=== PATIENT | male | born 1975 | race Caucasian/White ===

== ENCOUNTER 2017-07-19 18:06 | Emergency (ER) | payer MEDICAID, OTHER ==
[~2017-07-19] VITALS: Ht 175.3 cm; Wt 85.0 kg
[~2017-07-19 18:06] MED LIST: DICY1TAB26 PO; DICY20TA10 PO; HYDR-3533 PO; KCL20 PO; LEVE500 PO; MAGN500T4 PO; NOVOLOGSS SQ; NOVONP2 SQ; PRIL20TA2 PO; RANI150T PO; SERO400T3 PO; SUCR1S PO; SUCR1TAB PO; TRAZ50TA78 PO; ZOFR4TAB3 SL
[2017-07-19 18:08] VITALS: BP 154/74; PULSE 84; RESP 15; TEMP 98.2; O2SAT 98
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
[2017-07-19] MEDS ORDERED: INSU100V2 SQ (19:17)
[2017-07-19] MEDS ORDERED: SERO50TA PO (19:17)
[2017-07-19] MEDS ORDERED: TRAZ50TA12 PO (19:17)
[2017-07-19] MEDS ORDERED: KEPP750T PO (19:17)
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
[2017-07-19 19:36] VITALS: BP 141/78
== END 2017-07-19 19:54 | disposition home or self-care (01) ==
LOC: NEPK 18:06
DX: S90.31XA Contusion of right foot, initial encounter (principal); J45.909 Unspecified asthma, uncomplicated; F31.9 Bipolar disorder, unspecified; F41.9 Anxiety disorder, unspecified; E11.9 Type 2 diabetes mellitus without complications; K85.90 Acute pancreatitis without necrosis or infection, unspecified; K21.9 Gastro-esophageal reflux disease without esophagitis; R48.0 Dyslexia and alexia; W22.8XXA Striking against or struck by other objects, initial encounter
CPT/HCPCS: 73630; 99283

== ENCOUNTER 2017-11-11 19:46 | Inpatient (IN) | payer MEDICAID ==
[~2017-11-11] VITALS: Ht 175.3 cm; Wt 85.0 kg
[~2017-11-11 19:46] MED LIST changes: -DICY1TAB26 PO; -DICY20TA10 PO; -HYDR-3533 PO; +INSU100V2 SQ; -KCL20 PO; +KEPP750T PO; -LEVE500 PO; -MAGN500T4 PO; -NOVOLOGSS SQ; -NOVONP2 SQ; -PRIL20TA2 PO; -RANI150T PO; -SERO400T3 PO; +SERO50TA PO; -SUCR1S PO; -SUCR1TAB PO; +TRAZ50TA12 PO; -TRAZ50TA78 PO; -ZOFR4TAB3 SL
[2017-11-11 19:48] VITALS: BP 114/88; PULSE 139; RESP 20; TEMP 98; O2SAT 98
[2017-11-11] MEDS ORDERED: ALUMINUM/MAGNESIUM/SIMETH 30 ML CUP PO ONE (20:45)
[2017-11-11] MEDS ORDERED: SODIUM CHLORIDE 0.9% FLUSH 10 ML FLUSH IV FLUSH PRN ×2 (20:45→23:15)
[2017-11-11] MEDS ORDERED: LIDOCAINE VISCOUS 2% SOLN 15 ML UDC PO ONE (20:45)
[2017-11-11] MEDS ORDERED: PANTOPRAZOLE SODIUM 40 MG VIAL IVP ONE (20:45)
[2017-11-11] MEDS ORDERED: ONDANSETRON HCL 4 MG/2 ML VIAL IVP ONE (20:45)
--- NOTE | 2017-11-11 20:46 | PD ---
HPI Chief Complaint: Abdominal Pain Time Seen by Provider: 20:42 Travel History International Travel<30 days: No Contact w/Intl Traveler<30days: No Traveled to known affect area: No History of Present Illness HPI 41-year-old insulin-dependent diabetic presents emergency Department with 4-5 day history of nausea and vomiting with reports of hematemesis and abdominal pain. Patient has history of pancreatitis in the past. Patient is unsure was placed sugars have been. He is very dry states he does not refer the last time he urinated. He complains of dry mouth. He denies fever or chills. He states no diarrhea. Patient has multiple allergies please see list. Vital signs show the patient to be tachycardic. Bedside blood sugar is 529. PFSH Past Medical History Hx Anticoagulant Therapy: No Arthritis: No Asthma: Yes (COMES AND GOES) Autoimmune Disease: No Bipolar Disorder: Yes Anxiety: Yes Depression: Yes Heart Rhythm Problems: No Cancer: No Cardiovascular Problems: No High Cholesterol: No Chemotherapy: No Chest Pain: No Congestive Heart Failure: No COPD: No Cerebrovascular Accident: No Diabetes: Yes Patient Takes Glucophage: No Diminished Hearing: No Endocrine: Yes (pancreatitis) Gastrointestinal Disorders: Yes (HX OF ULCERS) GERD: Yes Genitourinary: No Hiatal Hernia: No Immune Disorder: No Implanted Vascular Access Dvce: No Kidney Stones: No Musculoskeletal: No Neurologic: Yes Psychiatric: Yes (dyslexia) Reproductive: No Respiratory: No Migraines: No Pancreatitis: Yes Radiation Therapy: No Renal Failure: No Seizures: Yes Sickle Cell Disease: No Sleep Apnea: No Ulcer: Yes Past Surgical History Abdominal Surgery: No AICD: No Arteriovenous Shunt: No Cardiac Surgery: No Ear Surgery: No Endocrine Surgery: No Eye Surgery: No Genitourinary Surgery: No Gynecologic Surgery: No Hysterectomy: No Insulin Pump: No Joint Replacement: No Pacemaker: No Thoracic Surgery: No Social History Alcohol Use: No (RARE) Tobacco Use: No Substance Use: Yes (WEED ONCE IN A WHILE ) Allergies-Medications (Allergen,Severity, Reaction): Coded Allergies: Pork/Porcine Containing Products (Verified Allergy, Severe, ALLERGIC TO PORK INSULIN ONLY, 11/11/17) insulin aspart (Verified Allergy, Severe, ITCHING, RASH TO PORK INSULIN ONLY, 11/11/17) insulin aspart protamine human (Verified Allergy, Severe, ITCHING, RASH TO PORK INSULIN ONLY, 11/11/17) insulin detemir (Verified Allergy, Severe, ITCHING, RASH TO PORK INSULIN ONLY, 11/11/17) insulin glargine (Verified Allergy, Severe, ITCHING, RASH TO PORK INSULIN ONLY, 11/11/17) insulin isophane (NPH) (Verified Allergy, Severe, ITCHING, RASH TO PORK INSULIN ONLY, 11/11/17) insulin lispro (Verified Allergy, Severe, ITCHING, RASH TO PORK INSULIN ONLY, 11/11/17) insulin regular (Verified Allergy, Severe, ITCHING, RASH TO PORK INSULIN ONLY, 11/11/17) penicillin G (Verified Allergy, Severe, HIVES, 11/11/17) Reported Meds & Prescriptions Reported Meds & Active Scripts Active Reported Humulin R Inj (Insulin Human Regular) 1,000 Unit/10 Ml Vial 2-12 Units SQ ACHS Max dose at bedtime:( )units; sugars < 70 (0)units; sugars 150-199, (2)units; sugars 200-249,(4)units; sugars 250-299, (7)units; sugars 300-349,(10)units; sugars more than 349,(12)units. Trazodone (Trazodone HCl) 50 Mg Tab 50 Mg PO HS Seroquel (Quetiapine Fumarate) 50 Mg Tab 50 Mg PO HS Keppra (Levetiracetam) 750 Mg Tab 750 Mg PO DAILY Review of Systems ROS Limitations: Poor Historian, Other: (obtunded.) Except as stated in HPI: all other systems reviewed are Neg General / Constitutional: No: Fever, Chills Eyes: No: Visual changes HENT: Positive: Lightheadedness, No: Headaches, Vertigo, Sore Throat, Rhinitis , Rhinorrhea, Congestion, Nosebleed, Neck Stiffness, Neck Pain, Gingival Bleeding, Dental Difficulties, Ear Discharge, Earache Cardiovascular: Positive: Dyspnea on exertion, No: Chest Pain or Discomfort, Diaphoresis Respiratory: No: Shortness of Breath Gastrointestinal: Positive: Nausea, Vomiting, Abdominal Pain, No: Diarrhea Genitourinary: Positive: Decreased Urinary Output, No: Dysuria Musculoskeletal: No: Pain Skin: No Rash Neurologic: No: Weakness Psychiatric: No: Depression Endocrine: No: Polydipsia Hematologic/Lymphatic: No: Easy Bruising Physical Exam Narrative GENERAL: Patient is answering questions but is somewhat obtunded, and weak. SKIN: Warm and dry. Decreased pallor. Decreased turgor with tenting. HEAD: Atraumatic. Normocephalic. EYES: Pupils equal and round. No scleral icterus. No injection or drainage. ENT: No nasal bleeding or discharge. Mucous membranes pink and moist. NECK: Trachea midline. No JVD. CARDIOVASCULAR: Regular rate and rhythm. RESPIRATORY: No accessory muscle use. Clear to auscultation. Breath sounds equal bilaterally. GASTROINTESTINAL: Abdomen soft, non-tender, nondistended. Hepatic and splenic margins not palpable. MUSCULOSKELETAL: Extremities without clubbing, cyanosis, or edema. No obvious deformities. NEUROLOGICAL: Awake and alert. No obvious cranial nerve deficits. Motor grossly within normal limits. Five out of 5 muscle strength in the arms and legs. Normal speech. PSYCHIATRIC: Appropriate mood and affect; insight and judgment normal. Data Data Last Documented VS Vital Signs Date Time Temp Pulse Resp B/P (MAP) Pulse Ox O2 Delivery O2 Flow Rate FiO2 11/11/17 23:02 123 20 143/92 (109) 99 Room Air 11/11/17 19:48 98.0 Orders Orders Complete Blood Count With Diff (11/11/17 20:42) Comprehensive Metabolic Panel (11/11/17 20:42) Lipase (11/11/17 20:42) Lactic Acid (11/11/17 20:42) Prothrombin Time / Inr (Pt) (11/11/17 20:42) Act Partial Throm Time (Ptt) (11/11/17 20:42) Urinalysis - C+S If Indicated (11/11/17 20:42) Iv Access Insert/Monitor (11/11/17 20:42) Ecg Monitoring (11/11/17 20:42) Oximetry (11/11/17 20:42) NPO (11/11/17 20:42) Ondansetron Inj (Zofran Inj) (11/11/17 20:45) Pantoprazole Inj (Protonix Inj) (11/11/17 20:45) Sodium Chlor 0.9% 1000 Ml Inj (Ns 1000 M (11/11/17 20:42) Sodium Chloride 0.9% Flush (Ns Flush) (11/11/17 20:45) Electrocardiogram (11/11/17 20:42) Al-Mag Hy-Si 40-40-4 Mg/Ml Liq (Mag-Al P (11/11/17 20:45) Lidocaine 2% Viscous (Xylocaine 2% Visco (11/11/17 20:45) Osmolality,Serum (11/11/17 20:52) Blood Gas Venous (Vbg) (11/11/17 20:52) Sodium Chloride 0.9% Flush (Ns Flush) (11/11/17 21:00) Insulin Human Regular Inj (Novolin R Inj (11/11/17 21:00) Blood Glucose (11/11/17 20:52) Blood Glucose (11/11/17 21:52) Beta Hydroxybutyrate (Acetone) (11/11/17 20:42) Magnesium (Mg) (11/11/17 20:42) Phosphorus (Po4) (11/11/17 20:42) Animal Caretaker Supervisor / Telemetry [email or web address] (11/11/17 21:54) ^ Insert Iv (11/11/17 21:54) Diet Npo (11/12/17 Breakfast) Sodium Chlor 0.9% 1000 Ml Inj (Ns 1000 M (11/11/17 21:54) Dext 5%-Nacl 0.9% 1000 Ml Inj (D5w-Ns 10 (11/11/17 21:54) Insulin Regular (Iv Infusion) (Novolin R (11/11/17 22:00) Potassium Chlor 40 Meq Premix (Kcl 40 Me (11/11/17 22:00) Potassium Chlor 40 Meq Premix (Kcl 40 Me (11/11/17 22:00) Potassium Chlor 20 Meq Premix (Kcl 20 Me (11/11/17 22:00) Potassium Chlor 20 Meq Premix (Kcl 20 Me (11/11/17 22:00) Potassium Chlor 20 Meq Premix (Kcl 20 Me (11/11/17 22:00) Potassium Chlor 20 Meq Premix (Kcl 20 Me (11/11/17 22:00) Potassium Chlor 20 Meq Premix (Kcl 20 Me (11/11/17 22:00) Potassium Chlor 20 Meq Premix (Kcl 20 Me (11/11/17 22:00) Sodium Bicarbonate 8.4% Inj (Sodium Bica (11/11/17 22:00) Sodium Bicarbonate 8.4% Inj (Sodium Bica (11/11/17 22:00) Sodium Phosphate Inj (Sodium Phosphate I (11/11/17 22:00) Hemoglobin (Hgb) A1c (11/11/17 21:54) Basic Metabolic Panel (Bmp) (11/12/17 02:54) Basic Metabolic Panel (Bmp) (11/12/17 08:54) Basic Metabolic Panel (Bmp) (11/12/17 14:54) Basic Metabolic Panel (Bmp) (11/12/17 20:54) Magnesium (Mg) (11/12/17 02:54) Magnesium (Mg) (11/12/17 08:54) Magnesium (Mg) (11/12/17 14:54) Magnesium (Mg) (11/12/17 20:54) Phosphorus (Po4) (11/12/17 02:54) Phosphorus (Po4) (11/12/17 08:54) Phosphorus (Po4) (11/12/17 14:54) Phosphorus (Po4) (11/12/17 20:54) Beta Hydroxybutyrate (Acetone) (11/12/17 08:54) Beta Hydroxybutyrate (Acetone) (11/12/17 20:54) Ct Abd/Pel W/O Iv Contrast (11/11/17 22:36) Admit Order (Ed Use Only) (11/11/17 23:07) Labs Laboratory Tests Test 11/11/17 20:59 11/11/17 21:02 11/11/17 21:04 11/11/17 21:41 Blood Urea Nitrogen 32 MG/DL Creatinine 2.43 MG/DL Random Glucose 562 MG/DL Total Protein 9.0 GM/DL Albumin 4.7 GM/DL Calcium Level 10.0 MG/DL Phosphorus Level 8.9 MG/DL Magnesium Level 2.5 MG/DL Alkaline Phosphatase 138 U/L Aspartate Amino Transf (AST/SGOT) 10 U/L Alanine Aminotransferase (ALT/SGPT) 20 U/L Total Bilirubin 0.7 MG/DL Sodium Level 128 MEQ/L Potassium Level 4.2 MEQ/L Chloride Level 86 MEQ/L Carbon Dioxide Level 10.8 MEQ/L Anion Gap 31 MEQ/L Estimat Glomerular Filtration Rate 30 ML/MIN Lipase 115 U/L B-Hydroxybutyrate 9.37 MMOL/L Lactic Acid Level 8.8 mmol/L White Blood Count 21.9 TH/MM3 Red Blood Count 6.11 MIL/MM3 Hemoglobin 18.1 GM/DL Hematocrit 56.4 % Mean Corpuscular Volume 92.4 FL Mean Corpuscular Hemoglobin 29.6 PG Mean Corpuscular Hemoglobin Concent 32.0 % Red Cell Distribution Width 14.2 % Platelet Count 366 TH/MM3 Mean Platelet Volume 8.4 FL Neutrophils (%) (Auto) 90.4 % Lymphocytes (%) (Auto) 5.4 % Monocytes (%) (Auto) 3.7 % Eosinophils (%) (Auto) 0.0 % Basophils (%) (Auto) 0.5 % Neutrophils # (Auto) 19.8 TH/MM3 Lymphocytes # (Auto) 1.2 TH/MM3 Monocytes # (Auto) 0.8 TH/MM3 Eosinophils # (Auto) 0.0 TH/MM3 Basophils # (Auto) 0.1 TH/MM3 CBC Comment DIFF FINAL Differential Comment Prothrombin Time 10.3 SEC Prothromb Time International Ratio 1.0 RATIO Activated Partial Thromboplast Time LESS THAN 19.0 SEC Serum Osmolality 352 MOSM/KG Blood Gas Puncture Site IV Blood Gas Patient Temperature 98.6 Venous Blood pH 7.14 Venous Blood Partial Pressure CO2 33 mmHg Venous Blood Partial Pressure O2 36 mmHg Venous Blood HCO3 11 mmol/L Venous Blood Oxygen Saturation 57 % Venous Blood Oxygen Content 13.1 Vol % Venous Blood Base Excess -16.5 mmol/L Oxygen Delivery Device ROOM AIR Blood Gas Inspired Oxygen 21 % [facility] Medical Decision Making Medical Screen Exam Complete: Yes Emergency Medical Condition: Yes Medical Record Reviewed: Yes Differential Diagnosis Hyperglycemia. DKA. Pancreatitis. Nausea vomiting. Hematemesis. Dehydration. Electrolyte imbalance. Narrative Course Patient appears moderately distressed with possible DKA. IV access is obtained. Labs ordered including CBC, CMP, lactic acid, lipase, coagulation studies, urinalysis, venous blood gas, phosphorus, magnesium, beta hydroxybutyrate. Type and screen is ordered as well. Patient is given 10 units insulin IV. 2000 mL normal saline bolus is ordered. Patient is a blood sugar checks every hour 2. CT of the abdomen with IV contrast is ordered pending creatinine. CBC is remarkable for leukocytosis of 21.9. Hemoglobin is 18.1. Hematocrit is 56.4. Venous blood gas shows DVT pH of 7.14, TBG HC03 is 11, and the GB base excess is -16.5 L. Patient is in DKA. Those results were discussed with Dr. Adkins who recommended starting the patient was DKA insulin drip with protocols. Serum osmolality is 352. Lactic acid is 8.8. CMP significant sodium of 128, chloride 86, carbon dioxide is 10.8, anion gap was 31. BUN is 32, creatinine is 2.43, is estimated at 30. Glucose from the lab is 562. Phosphorus 8.9. Calcium is 10. Alkaline phosphatase is 138, total protein is 9.0, lipase is 1:15. Patient will be admitted to the ICU. Call placed to the hospitalist. Diagnosis Primary Impression: DKA (diabetic ketoacidoses) Qualified Codes: E10.10 - Type 1 diabetes mellitus with ketoacidosis without coma Additional Impression: Hematemesis Qualified Codes: K92.0 - Hematemesis Admitting Information Admitting Physician Requests: Admit Condition: Stable Jonah Turner Nov 11, 2017 20:46
--- NOTE | 2017-11-11 20:53 | PD ---
Data Data Last Documented VS Vital Signs Date Time Temp Pulse Resp B/P (MAP) Pulse Ox O2 Delivery O2 Flow Rate FiO2 11/11/17 23:02 123 20 143/92 (109) 99 Room Air 11/11/17 19:48 98.0 Orders Orders Complete Blood Count With Diff (11/11/17 20:42) Comprehensive Metabolic Panel (11/11/17 20:42) Lipase (11/11/17 20:42) Lactic Acid (11/11/17 20:42) Prothrombin Time / Inr (Pt) (11/11/17 20:42) Act Partial Throm Time (Ptt) (11/11/17 20:42) Urinalysis - C+S If Indicated (11/11/17 20:42) Iv Access Insert/Monitor (11/11/17 20:42) Ecg Monitoring (11/11/17 20:42) Oximetry (11/11/17 20:42) NPO (11/11/17 20:42) Ondansetron Inj (Zofran Inj) (11/11/17 20:45) Pantoprazole Inj (Protonix Inj) (11/11/17 20:45) Sodium Chlor 0.9% 1000 Ml Inj (Ns 1000 M (11/11/17 20:42) Sodium Chloride 0.9% Flush (Ns Flush) (11/11/17 20:45) Al-Mag Hy-Si 40-40-4 Mg/Ml Liq (Mag-Al P (11/11/17 20:45) Lidocaine 2% Viscous (Xylocaine 2% Visco (11/11/17 20:45) Osmolality,Serum (11/11/17 20:52) Blood Gas Venous (Vbg) (11/11/17 20:52) Sodium Chloride 0.9% Flush (Ns Flush) (11/11/17 21:00) Insulin Human Regular Inj (Novolin R Inj (11/11/17 21:00) Blood Glucose (11/11/17 20:52) Blood Glucose (11/11/17 21:52) Beta Hydroxybutyrate (Acetone) (11/11/17 20:42) Magnesium (Mg) (11/11/17 20:42) Phosphorus (Po4) (11/11/17 20:42) Rack Washer / Telemetry JOHN.Q8H (11/11/17 21:54) ^ Insert Iv (11/11/17 21:54) Diet Npo (11/12/17 Breakfast) Sodium Chlor 0.9% 1000 Ml Inj (Ns 1000 M (11/11/17 21:54) Dext 5%-Nacl 0.9% 1000 Ml Inj (D5w-Ns 10 (11/11/17 21:54) Insulin Regular (Iv Infusion) (Novolin R (11/11/17 22:00) Potassium Chlor 40 Meq Premix (Kcl 40 Me (11/11/17 22:00) Potassium Chlor 40 Meq Premix (Kcl 40 Me (11/11/17 22:00) Potassium Chlor 20 Meq Premix (Kcl 20 Me (11/11/17 22:00) Potassium Chlor 20 Meq Premix (Kcl 20 Me (11/11/17 22:00) Potassium Chlor 20 Meq Premix (Kcl 20 Me (11/11/17 22:00) Potassium Chlor 20 Meq Premix (Kcl 20 Me (11/11/17 22:00) Potassium Chlor 20 Meq Premix (Kcl 20 Me (11/11/17 22:00) Potassium Chlor 20 Meq Premix (Kcl 20 Me (11/11/17 22:00) Sodium Bicarbonate 8.4% Inj (Sodium Bica (11/11/17 22:00) Sodium Bicarbonate 8.4% Inj (Sodium Bica (11/11/17 22:00) Sodium Phosphate Inj (Sodium Phosphate I (11/11/17 22:00) Hemoglobin (Hgb) A1c (11/11/17 21:54) Basic Metabolic Panel (Bmp) (11/12/17 02:54) Basic Metabolic Panel (Bmp) (11/12/17 08:54) Magnesium (Mg) (11/12/17 02:54) Magnesium (Mg) (11/12/17 08:54) Phosphorus (Po4) (11/12/17 02:54) Phosphorus (Po4) (11/12/17 08:54) Beta Hydroxybutyrate (Acetone) (11/12/17 08:54) Ct Abd/Pel W/O Iv Contrast (11/11/17 22:36) Admit Order (Ed Use Only) (11/11/17 23:07) Random Vancomycin (11/12/17 02:54) Labs Laboratory Tests Test 11/11/17 20:59 11/11/17 21:02 11/11/17 21:04 11/11/17 21:41 Blood Urea Nitrogen 32 MG/DL Creatinine 2.43 MG/DL Random Glucose 562 MG/DL Total Protein 9.0 GM/DL Albumin 4.7 GM/DL Calcium Level 10.0 MG/DL Phosphorus Level 8.9 MG/DL Magnesium Level 2.5 MG/DL Alkaline Phosphatase 138 U/L Aspartate Amino Transf (AST/SGOT) 10 U/L Alanine Aminotransferase (ALT/SGPT) 20 U/L Total Bilirubin 0.7 MG/DL Sodium Level 128 MEQ/L Potassium Level 4.2 MEQ/L Chloride Level 86 MEQ/L Carbon Dioxide Level 10.8 MEQ/L Anion Gap 31 MEQ/L Estimat Glomerular Filtration Rate 30 ML/MIN Lipase 115 U/L B-Hydroxybutyrate 9.37 MMOL/L Lactic Acid Level 8.8 mmol/L White Blood Count 21.9 TH/MM3 Red Blood Count 6.11 MIL/MM3 Hemoglobin 18.1 GM/DL Hematocrit 56.4 % Mean Corpuscular Volume 92.4 FL Mean Corpuscular Hemoglobin 29.6 PG Mean Corpuscular Hemoglobin Concent 32.0 % Red Cell Distribution Width 14.2 % Platelet Count 366 TH/MM3 Mean Platelet Volume 8.4 FL Neutrophils (%) (Auto) 90.4 % Lymphocytes (%) (Auto) 5.4 % Monocytes (%) (Auto) 3.7 % Eosinophils (%) (Auto) 0.0 % Basophils (%) (Auto) 0.5 % Neutrophils # (Auto) 19.8 TH/MM3 Lymphocytes # (Auto) 1.2 TH/MM3 Monocytes # (Auto) 0.8 TH/MM3 Eosinophils # (Auto) 0.0 TH/MM3 Basophils # (Auto) 0.1 TH/MM3 CBC Comment DIFF FINAL Differential Comment Prothrombin Time 10.3 SEC Prothromb Time International Ratio 1.0 RATIO Activated Partial Thromboplast Time LESS THAN 19.0 SEC Serum Osmolality 352 MOSM/KG Blood Gas Puncture Site IV Blood Gas Patient Temperature 98.6 Venous Blood pH 7.14 Venous Blood Partial Pressure CO2 33 mmHg Venous Blood Partial Pressure O2 36 mmHg Venous Blood HCO3 11 mmol/L Venous Blood Oxygen Saturation 57 % Venous Blood Oxygen Content 13.1 Vol % Venous Blood Base Excess -16.5 mmol/L Oxygen Delivery Device ROOM AIR Blood Gas Inspired Oxygen 21 % [facility] Medical Record Reviewed: Yes Supervised Visit with RAMILA: Yes Interpretation(s) Last Impressions Abdomen/Pelvis CT 11/11/17 2236 Signed Impressions: Service Date/Time: Saturday, November 11, 2017 22:31 - CONCLUSION: 1. No acute abnormality seen. 2. Minimal hepatic steatosis. Son Malave MD Chest X-Ray 11/11/17 0000 Signed Impressions: Service Date/Time: Saturday, November 11, 2017 23:32 - CONCLUSION: No acute disease. Son Malave MD Narrative Course I, Dr. Adkins, have reviewed the advance practice practitioner's documentation and am in agreement, met with the patient face to face, made the diagnosis, and the medical decision making was done by me. The patient was initially evaluated by Jonah, the physician assistance. Please see their complete history and physical. *My assessment and Findings: The patient presents with a history of abdominal pain with nausea vomiting and coffee-ground emesis that he reports began 4-5 days ago. The patient has a history of diabetes. The patient has a history of pancreatitis. The patient is unsure what his recent blood sugar has been. He reports having a dry mouth with urinary frequency and polydipsia. During the course of the patients emergency department visit, the patients history, examination, and differential diagnosis were reviewed with the patient. The patient was placed on a cardiac technologist with oximetry and frequent blood pressure monitoring. The patient had IV access obtained and blood work sent for analysis. The patient was initially provided 2 L of normal saline IV fluids as the patient appeared to be clinically dehydrated. The patient also appeared to be tachypneic consistent with DKA with an elevated blood sugar. A VBG was ordered which confirmed acidosis. The patient was given an insulin bolus and started on an insulin drip. The patients laboratory studies were reviewed and remarkable for white count of 21.9, hemoglobin 18.1, platelets 366 with neutrophils 90.4, CMP is remarkable for a sodium of 128, CO2 10.8, BUN 32, creatinine 2.43, anion gap 32, glucose 562, lactic acid 8.8, lipase 115. PT 10.3, PTT less than 19, beta hydroxybutyrate is 9.37, urinalysis shows 1000 glucose 150 ketones Radiology studies were reviewed and remarkable for chest x-ray that shows no acute cardiopulmonary disease, CT scan of the abdomen and pelvis shows no acute abnormality, minimal hepatic steatosis. The patients results were discussed with the patient, including the plan of care. I explained that further testing and/ or monitoring is indicated based on the patients history, examination, and/ or laboratory findings. Therefore, I recommended admission for additional evaluation. The patient expressed understanding and was agreeable with this plan. The patient was admitted to the hospital in guarded condition and [facility]. Diagnosis Primary Impression: DKA (diabetic ketoacidoses) Qualified Codes: E10.10 - Type 1 diabetes mellitus with ketoacidosis without coma Additional Impression: Dehydration Admitting Information Admitting Physician Requests: Admit Linda Adkins MD Nov 11, 2017 20:53
[2017-11-11] MEDS ORDERED: INSULIN HUMAN REGULAR 1,000 UNITS/10 ML VIAL IV PUSH ONE (21:00)
[2017-11-11] MEDS ORDERED: SODIUM CHLORIDE 0.9% FLUSH 10 ML FLUSH IVF PRN (21:00)
[2017-11-11 21:35] LABS: AUTOMATED NEUTROPHIL # 19.8 TH/MM3 (1.8-7.7); BASOPHIL # 0.1 TH/MM3 (0-0.2); BASOPHIL % 0.5 % (0.0-2.0); HEMATOCRIT 56.4 % (39.0-51.0); HEMOGLOBIN 18.1 GM/DL (13.0-17.0); LYMPH % 5.4 % (9.0-44.0); LYMPHOCYTE # 1.2 TH/MM3 (1.0-4.8); MEAN CELL VOLUME 92.4 FL (80.0-100.0); MEAN CORPUSCULAR HEMOGLOBIN 29.6 PG (27.0-34.0); MEAN PLATELET VOLUME 8.4 FL (7.0-11.0); MONO % 3.7 % (0.0-8.0); MONOCYTE # 0.8 TH/MM3 (0-0.9); NEUT % 90.4 % (16.0-70.0); PLATELET COUNT 366 TH/MM3 (150-450); RED BLOOD COUNT 6.11 MIL/MM3 (4.50-5.90); RED CELL DISTRIBUTION WIDTH 14.2 % (11.6-17.2); WHITE BLOOD COUNT 21.9 TH/MM3 (4.0-11.0)
[2017-11-11] MEDS: SODIUM CHLOR 0.9% 1000 ML INJ 1,000 ML IV SCH (21:36)
[2017-11-11 21:42] VITALS: O2SAT 96
[2017-11-11] MEDS: DEXT 5%-NACL 0.9% 1000 ML INJ 1,000 ML IV SCH (21:54)
[2017-11-11] MEDS ORDERED: INSULIN REGULAR (IV INFUSION) 100 UNITS in SODIUM CHLORIDE 0.9% INJ 99 ML IV PRN (22:00)
[2017-11-11] MEDS ORDERED: POTASSIUM CHLOR 20 MEQ PREMIX 100 ML IV PRN ×5 (22:00)
[2017-11-11] MEDS ORDERED: SODIUM BICARBONATE 8.4% SOLN 50 MEQ/50 ML VIAL IV PUSH PRN ×2 (22:00)
[2017-11-11] MEDS ORDERED: SODIUM PHOSPHATE INJ 15 MMOL in SODIUM CHLORIDE 0.9% INJ 100 ML IV PRN (22:00)
[2017-11-11] MEDS ORDERED: POTASSIUM CHLOR 40 MEQ PREMIX 100 ML IV PRN ×2 (22:00)
[2017-11-11 22:12] LABS: PROTHROMBIN TIME - PATIENT 10.3 SEC (9.8-11.6)
[2017-11-11 22:18] LABS: ALBUMIN 4.7 GM/DL (3.4-5.0); ALKALINE PHOSPHATASE 138 U/L (45-117); ALT (GPT) 20 U/L (12-78); AST (GOT) 10 U/L (15-37); BICARBONATE 10.8 MEQ/L (21.0-32.0); BLOOD UREA NITROGEN 32 MG/DL (7-18); CHLORIDE 86 MEQ/L (98-107); CREATININE 2.43 MG/DL (0.60-1.30); GLOMERULAR FILTRATION RATE 30 ML/MIN (>89); LIPASE 115 U/L (73-393); MAGNESIUM 2.5 MG/DL (1.5-2.5); PHOSPHORUS 8.9 MG/DL (2.5-4.9); SODIUM (NA) 128 MEQ/L (136-145); TOTAL BILIRUBIN ADULT 0.7 MG/DL (0.2-1.0)
[2017-11-11 22:20] LABS: GLUCOSE,RANDOM 562 MG/DL (74-106)
[2017-11-11 23:02] VITALS: BP 143/92; PULSE 123; RESP 20; O2SAT 99
--- NOTE | 2017-11-11 23:11 | HHI.HP ---
[facility] Quang Crain D.O. Admission Diagnosis DKA/Hematemesis/Dehydration Diagnoses: (1) DKA (diabetic ketoacidoses) Diagnosis: Principal (2) Lactic acidosis Diagnosis: Principal (3) Leukocytosis Diagnosis: Principal (4) Hematemesis Diagnosis: Principal Travel History International Travel<30 Days: No Contact w/Intl Traveler <30 Da: No Traveled to Known Affected Are: No History of Present Illness This is a 41-year-old male with a PMH of DM, Anxiety, Depression, Bipolar Disorder, Seizure Disorder, Non-Compliance, h/o Pancreatitis and GERD who presented to the ER w/ complaints of abdominal pain, nausea/vomiting and hematemesis x4-5 days. Reports generalized abdominal pain, intermittent, cramping, severe 8/10, non-radiating, associated w/ nausea/vomiting. Today, noted episode of bloody emesis. Denies fever, chills, diarrhea or sick contacts. Does not check BS regularly, non-compliant w/ medications. On arrival, BP 114/88, HR 139, O2 sat 98% on RA, Afebrile. WBC 21.9. Creatinine 2.43, previously 0.91 on 09/03/15. CO2 10.8. BS 562, Lactic Acid 8.8. B- hydroxy 9.37. ABG w/ pH 7.14. Started on DKA Protocol. CT Abd/Pelvis w/ no acute findings. Review of Systems Except as stated in HPI: all other systems reviewed are Neg ROS: 14 point review of systems otherwise negative. Past Family Social History Past Medical History PMH: DM, Anxiety, Depression, Bipolar Disorder, Seizure Disorder, Non- Compliance, h/o Pancreatitis and GERD Past Surgical History PAST SURGICAL HISTORY: None Allergies: Coded Allergies: Pork/Porcine Containing Products (Verified Allergy, Severe, ALLERGIC TO PORK INSULIN ONLY, 11/11/17) insulin aspart (Verified Allergy, Severe, ITCHING, RASH TO PORK INSULIN ONLY, 11/11/17) insulin aspart protamine human (Verified Allergy, Severe, ITCHING, RASH TO PORK INSULIN ONLY, 11/11/17) insulin detemir (Verified Allergy, Severe, ITCHING, RASH TO PORK INSULIN ONLY, 11/11/17) insulin glargine (Verified Allergy, Severe, ITCHING, RASH TO PORK INSULIN ONLY, 11/11/17) insulin isophane (NPH) (Verified Allergy, Severe, ITCHING, RASH TO PORK INSULIN ONLY, 11/11/17) insulin lispro (Verified Allergy, Severe, ITCHING, RASH TO PORK INSULIN ONLY, 11/11/17) insulin regular (Verified Allergy, Severe, ITCHING, RASH TO PORK INSULIN ONLY, 11/11/17) penicillin G (Verified Allergy, Severe, HIVES, 11/11/17) Family History PAST FAMILY HISTORY: Reviewed, positive for DM. Social History PAST SOCIAL HISTORY: Occasional alcohol. History of tobacco. Positive for Marijuana. Physical Exam Vital Signs Vital Signs Date Time Temp Pulse Resp B/P (MAP) Pulse Ox O2 Delivery O2 Flow Rate FiO2 11/11/17 23:02 123 20 143/92 (109) 99 Room Air 11/11/17 21:42 96 Room Air 11/11/17 19:48 98.0 139 20 114/88 (97) 98 Room Air Physical Exam PE: GENERAL: Middle-aged male in no acute distress, mildly lethargic, appears weak. HEENT: PERRLA, EOMI. No scleral icterus or conjunctival pallor. No lid lag or facial droop. CARDIOVASCULAR: Regular rate and rhythm. No obvious murmurs to auscultation. No chest tenderness to palpation. RESPIRATORY: No obvious rhonchi or wheezing. Clear to auscultation. Breath sounds equal bilaterally. GASTROINTESTINAL: Abdomen soft, non-tender, nondistended. BS normal. MUSCULOSKELETAL: Extremities without clubbing, cyanosis, or edema. No obvious deformities. NEUROLOGICAL: Awake, alert and oriented x4. No focal neurologic deficits. Moving both upper and lower extremities spontaneously. Laboratory Laboratory Tests Test 11/11/17 20:59 11/11/17 21:02 11/11/17 21:04 11/11/17 21:41 Blood Urea Nitrogen 32 Creatinine 2.43 Random Glucose 562 Total Protein 9.0 Albumin 4.7 Calcium Level 10.0 Phosphorus Level 8.9 Magnesium Level 2.5 Alkaline Phosphatase 138 Aspartate Amino Transf (AST/SGOT) 10 Alanine Aminotransferase (ALT/SGPT) 20 Total Bilirubin 0.7 Sodium Level 128 Potassium Level 4.2 Chloride Level 86 Carbon Dioxide Level 10.8 Anion Gap 31 Estimat Glomerular Filtration Rate 30 Lipase 115 B-Hydroxybutyrate 9.37 Lactic Acid Level 8.8 White Blood Count 21.9 Red Blood Count 6.11 Hemoglobin 18.1 Hematocrit 56.4 Mean Corpuscular Volume 92.4 Mean Corpuscular Hemoglobin 29.6 Mean Corpuscular Hemoglobin Concent 32.0 Red Cell Distribution Width 14.2 Platelet Count 366 Mean Platelet Volume 8.4 Neutrophils (%) (Auto) 90.4 Lymphocytes (%) (Auto) 5.4 Monocytes (%) (Auto) 3.7 Eosinophils (%) (Auto) 0.0 Basophils (%) (Auto) 0.5 Neutrophils # (Auto) 19.8 Lymphocytes # (Auto) 1.2 Monocytes # (Auto) 0.8 Eosinophils # (Auto) 0.0 Basophils # (Auto) 0.1 CBC Comment DIFF FINAL Differential Comment Prothrombin Time 10.3 Prothromb Time International Ratio 1.0 Activated Partial Thromboplast Time LESS THAN 19.0 Serum Osmolality 352 Blood Gas Puncture Site IV Blood Gas Patient Temperature 98.6 Venous Blood pH 7.14 Venous Blood Partial Pressure CO2 33 Venous Blood Partial Pressure O2 36 Venous Blood HCO3 11 Venous Blood Oxygen Saturation 57 Venous Blood Oxygen Content 13.1 Venous Blood Base Excess -16.5 Oxygen Delivery Device ROOM AIR Blood Gas Inspired Oxygen 21 Result Diagram: 11/11/17210311/11/172058 Caprini VTE Risk Assessment Caprini VTE Risk Assessment: No/Low Risk (score <= 1) Caprini Risk Assessment Model Point Value = 1 Point Value = 2 Point Value = 3 Point Value = 5 Age 41-60 Minor surgery BMI > 25 kg/m2 Swollen legs Varicose veins or History of unexplained or recurrent spontaneous Oral contraceptives or hormone replacement Sepsis (< 1 month) Serious lung disease, including pneumonia (< 1 month) Abnormal pulmonary function Acute myocardial infarction Congestive heart failure (< 1 month) History of inflammatory bowel disease Medical patient at bed rest Age 61-74 Arthroscopic surgery Major open surgery (> 45 min) Laparoscopic surgery (> 45 min) Malignancy Confined to bed (> 72 hours) Immobilizing plaster cast Central venous access Age >= 75 History of VTE Family history of VTE Factor V Leiden Prothrombin [id number] Lupus anticoagulant Anticardiolipin antibodies Elevated serum homocysteine Heparin-induced thrombocytopenia Other congenital or acquired thrombophilia Stroke (< 1 month) Elective arthroplasty Hip, pelvis, or leg fracture Acute spinal cord injury (< 1 month) Prophylaxis Regimen Total Risk Factor Score Risk Level Prophylaxis Regimen 0-1 Low Early ambulation 2 Moderate Order ONE of the following: *Sequential Compression Device (SCD) *Heparin 5000 units SQ BID 3-4 Higher Order ONE of the following medications: *Heparin 5000 units SQ TID *Enoxaparin/Lovenox 40 mg SQ daily (WT < 150 kg, CrCl > 30 mL/min) *Enoxaparin/Lovenox 30 mg SQ daily (WT < 150 kg, CrCl > 10-29 mL/min) *Enoxaparin/Lovenox 30 mg SQ BID (WT < 150 kg, CrCl > 30 mL/min) AND/OR *Sequential Compression Device (SCD) 5 or more Highest Order ONE of the following medications: *Heparin 5000 units SQ TID (Preferred with Epidurals) *Enoxaparin/Lovenox 40 mg SQ daily (WT < 150 kg, CrCl > 30 mL/min) *Enoxaparin/Lovenox 30 mg SQ daily (WT < 150 kg, CrCl > 10-29 mL/min) *Enoxaparin/Lovenox 30 mg SQ BID (WT < 150 kg, CrCl > 30 mL/min) AND *Sequential Compression Device (SCD) Assessment and Plan Problem List: (1) DKA (diabetic ketoacidoses) ICD Code: E13.10 - DKA (diabetic ketoacidoses) Status: Acute (2) Lactic acidosis ICD Code: E87.2 - Acidosis (3) Hematemesis ICD Code: K92.0 - Hematemesis Status: Acute (4) Leukocytosis ICD Code: D72.829 - Leukocytosis Status: Acute Assessment and Plan A/P: 1. DKA: Severe. BS 562, CO2 10.8, AG 31, pH 7.14, B-hydroxy 9.78. Admit to ICU for close monitoring, continue DKA Protocol, check Hgb A1c, transition to Sliding Scale and restart home medications when acidosis resolved. 2. Lactic Acidosis: Secondary to above, Lactate 8.8, no evidence of Sepsis. Continue aggressive IVF for hydration, repeat Lactic Acid for trend. 3. Leukocytosis: WBC 21.9, Afebrile, likely secondary to acute DKA. No signs of infection. U/a negative. Check CXR for possible underlying PNA. 4. Hematemesis: likely secondary to intractable nausea/vomiting from DKA. CT Abd/Pelvis w/ no acute findings, images reviewed by me. Check repeat Hgb for trend. GI Consult if needed for persistent hematemesis. Pepcid IV. 5. DVT Prophylaxis: SCD/teds. 6. Social work for DC planning as needed. 7. Case discussed at length with ER physician. Labs/imaging/records reviewed by me. Physician Certification 2 Midnight Certification Type: Admission for Inpatient Services Order for Inpatient Services The services are ordered in accordance with Medicare regulations or non- Medicare payer requirements, as applicable. In the case of services not specified as inpatient-only, they are appropriately provided as inpatient services in accordance with the 2-midnight benchmark. Estimated LOS (days): 2 days is the estimated time the patient will need to remain in the hospital, assuming treatment plan goals are met and no additional complications. Post-Hospital Plan: Not yet determined Problem Qualifiers (1) DKA (diabetic ketoacidoses): Qualified Codes: E10.10 - Type 1 diabetes mellitus with ketoacidosis without coma (2) Hematemesis: Qualified Codes: K92.0 - Hematemesis Azul Melendez MD Nov 11, 2017 23:11
[2017-11-11] MEDS ORDERED: MORPHINE SULFATE 2 MG/ML INJ IV PUSH ONE (23:15)
[2017-11-11] MEDS ORDERED: MAGNESIUM HYDROXIDE SUSP 30 ML CUP PO PRN (23:15)
[2017-11-11] MEDS: traZODone HCL 50 MG TAB PO SCH (23:15)
[2017-11-11] MEDS ORDERED: LACTULOSE SYRUP 20 GM/30 ML CUP PO PRN (23:15)
[2017-11-11] MEDS: QUEtiapine FUMARATE 25 MG TAB PO SCH (23:15)
[2017-11-11] MEDS ORDERED: BISACODYL 10 MG SUPP RECTAL PRN (23:15)
[2017-11-11] MEDS ORDERED: SENNOSIDES 8.6 MG TAB PO PRN (23:15)
[2017-11-11] MEDS ORDERED: MISCELLANEOUS NURSING INFORMATION XX SCH (23:15)
[2017-11-11] MEDS ORDERED: CHLORHEXIDINE GLUCONATE 2 % 1 PACK (2 CLOTHS) TOP PRN (23:15)
[2017-11-11] MEDS ORDERED: ACETAMINOPHEN 325 MG TAB PO PRN (23:15)
--- NOTE | 2017-11-11 23:23 | RADRPT ---
EXAM DATE/TIME: 11/11/2017 22:31 [facility] COMPARISON: CT ABDOMEN & PELVIS W/O CONTRAST, July 19, 2015, 8:04. INDICATIONS : Abdomen pain. ORAL CONTRAST: No oral contrast ingested. RADIATION DOSE: 9.96 CTDIvol (mGy) MEDICAL HISTORY : Seizures. Pancreatitis. Diabetes mellitus type 2. SURGICAL HISTORY : None. ENCOUNTER: Initial ACUITY: 1 day PAIN SCALE: 8/10 LOCATION: Bilateral abdomen TECHNIQUE: Volumetric scanning of the abdomen and pelvis was performed. Using automated exposure control and ad justment of the mA and/or kV according to patient size, radiation dose was kept as low as reasonably achievable to obtain optimal diagnostic quality images. DICOM format image data is available electro nically for review and comparison. FINDINGS: LOWER LUNGS: The visualized lower lungs are clear. LIVER: There is mild decreased density to the liver. No focal hepatic lesion is seen. There is no dilation of the biliary tree. No calcified gallstones. SPLEEN: Normal size without lesion. PANCREAS: Within normal limits. KIDNEYS: Normal in size and shape. There is no mass, stone, or hydronephrosis. ADRENAL GLANDS: Within normal limits. VASCULAR: There is no aortic aneurysm. BOWEL/MESENTERY: The stomach, small bowel, and colon demonstrate no acute abnormality. There is no free intraperitone al air or fluid. The appendix is normal. ABDOMINAL WALL: Within normal limits. RETROPERITONEUM: There is no lymphadenopathy. BLADDER: No wall thickening or mass. REPRODUCTIVE: Within normal limits. INGUINAL: There is no lymphadenopathy or hernia. MUSCULOSKELETAL: Within normal limits for patient age. CONCLUSION: 1. No acute abnormality seen. 2. Minimal hepatic steatosis. Son Malave MD on November 11, 2017 at 23:17 Board Certified Radiologist. This report was verified electronically.
[2017-11-12] VITALS (17 sets, daily range): BP systolic 110–148; BP diastolic 66–91; PULSE 91–118; RESP 18–33; TEMP 97.5–98.5; O2SAT 96–99
--- NOTE | 2017-11-12 | RADRPT ---
EXAM DATE/TIME: 11/11/2017 23:32 [facility] COMPARISON: No previous studies available for comparison. INDICATIONS : Cough. MEDICAL HISTORY : Pancreatitis. Diabetes mellitus type II. Seizures SURGICAL HISTORY : None. ENCOUNTER: Initial ACUITY: 1 day PAIN SCORE: 0/10 LOCATION: Bilateral chest FINDINGS: A single view of the chest demonstrates the lungs to be symmetrically aerated without evidence of mas s, infiltrate or effusion. The cardiomediastinal contours are unremarkable. Osseous structures are intact. CONCLUSION: No acute disease. Son Malave MD on November 11, 2017 at 23:58 Board Certified Radiologist. This report was verified electronically.
[2017-11-12 00:11] LABS: BILIRUBIN, URINE NEG (NEG); BLOOD, URINE NEG (NEG); GLUCOSE,URINE 1000 mg/dL (NEG); HYALINE CAST, URINE 7 /lpf (RARE); KETONE, URINE 150 mg/dL (NEG); MUCUS URINE FEW /lpf (OCC); NITRITE,URINE NEG (NEG); SQUAMOUS EPITHELIAL CELL URINE <1 /hpf (0-5); URINE COLOR LIGHT-YELLOW (YELLW/STRAW); URINE LEUKOCYTE ESTERASE NEG (NEG)
[2017-11-12] MEDS: ONDANSETRON HCL 4 MG/2 ML VIAL IVP PRN ×2 (00:29→18:13)
[2017-11-12] MEDS: SODIUM CHLOR 0.9% 1000 ML INJ 1,000 ML IV SCH ×6 (00:43→13:54)
[2017-11-12] MEDS: POTASSIUM CHLOR 20 MEQ PREMIX 100 ML IV PRN ×2 (02:33→05:09)
[2017-11-12] MEDS: DEXT 5%-NACL 0.9% 1000 ML INJ 1,000 ML IV SCH ×3 (02:54→12:54)
[2017-11-12] MEDS ORDERED: METOPROLOL TARTRATE 5 MG/5 ML VIAL IV PUSH ONE (03:30)
[2017-11-12] MEDS: CHLORHEXIDINE GLUCONATE 2 % 1 PACK (2 CLOTHS) TOP SCH (04:00)
[2017-11-12] MEDS: MORPHINE SULFATE 2 MG/ML INJ IV PUSH PRN ×2 (04:12→18:13)
[2017-11-12] MEDS ORDERED: LORazepam 2 MG/ML VIAL IV PUSH ONE (04:30)
[2017-11-12] MEDS ORDERED: LORazepam 2 MG/ML VIAL IV PUSH PRN (04:30)
[2017-11-12 05:03] LABS: BICARBONATE 21.2 MEQ/L (21.0-32.0); BLOOD UREA NITROGEN 25 MG/DL (7-18); CALCIUM 8.4 MG/DL (8.5-10.1); CHLORIDE 108 MEQ/L (98-107); CREATININE 1.44 MG/DL (0.60-1.30); GLOMERULAR FILTRATION RATE 54 ML/MIN (>89); GLUCOSE,RANDOM 169 MG/DL (74-106); MAGNESIUM 2.3 MG/DL (1.5-2.5); PHOSPHORUS 0.8 MG/DL (2.5-4.9); RANDOM VANCOMYCIN LESS THAN 0.8 COMMENT; SODIUM (NA) 140 MEQ/L (136-145)
[2017-11-12] MEDS ORDERED: GLUCAGON 1 MG/ML VIAL OTHER PRN (08:45)
[2017-11-12] MEDS ORDERED: DEXTROSE 50% IN WATER 50 ML VIAL(D50) IV PUSH PRN (08:45)
[2017-11-12] MEDS: DOCUSATE SODIUM 50 MG/SENNA 8.6 MG TAB PO SCH ×2 (09:00→21:00)
[2017-11-12] MEDS: levETIRAcetam 250 MG TAB PO SCH (10:22)
[2017-11-12] MEDS: INSULIN DETEMIR 100 UNITS/ML VIAL SQ SCH ×2 (10:23→21:15)
[2017-11-12] MEDS: SODIUM CHLORIDE 0.9% FLUSH 10 ML FLUSH IV FLUSH SCH ×2 (10:23→21:14)
[2017-11-12 10:41] LABS: BICARBONATE 23.4 MEQ/L (21.0-32.0); BLOOD UREA NITROGEN 21 MG/DL (7-18); CALCIUM 8.5 MG/DL (8.5-10.1); CHLORIDE 110 MEQ/L (98-107); CREATININE 1.27 MG/DL (0.60-1.30); GLOMERULAR FILTRATION RATE 63 ML/MIN (>89); GLUCOSE,RANDOM 193 MG/DL (74-106); MAGNESIUM 2.5 MG/DL (1.5-2.5); PHOSPHORUS 0.8 MG/DL (2.5-4.9); SODIUM (NA) 141 MEQ/L (136-145)
[2017-11-12 11:49] LABS: HEMOGLOBIN A1C 11.2 % (4.3-6.0)
--- NOTE | 2017-11-12 14:35 | HHI.PR ---
Subjective Remarks Follow-up for abdominal pain, hematemesis, nausea vomiting, DKA. Patient is currently doing well. He is somewhat drowsy but answers questions appropriately. He is tolerating current diet and would like to advance diet. He complains of some abdominal pain. No fever or chills. Objective Vitals Vital Signs Date Time Temp Pulse Resp B/P (MAP) Pulse Ox O2 Delivery O2 Flow Rate FiO2 11/12/17 14:00 96 11/12/17 13:00 92 23 122/72 (89) 98 11/12/17 12:00 97.5 100 19 123/67 (85) 97 11/12/17 12:00 100 11/12/17 11:00 100 19 114/66 (82) 99 11/12/17 10:00 91 11/12/17 10:00 91 19 110/79 (89) 98 11/12/17 09:00 95 18 124/72 (89) 97 11/12/17 08:00 100 11/12/17 08:00 97.6 100 21 120/67 (84) 96 11/12/17 07:00 101 19 119/73 (88) 97 11/12/17 06:00 109 11/12/17 04:00 98.4 112 33 121/76 (91) 99 11/12/17 04:00 112 11/12/17 02:00 118 11/12/17 01:36 98.5 116 20 138/91 (107) 97 11/11/17 23:02 123 20 143/92 (109) 99 Room Air 11/11/17 21:42 96 Room Air 11/11/17 19:48 98.0 139 20 114/88 (97) 98 Room Air I/O 11/11/17 11/11/17 11/11/17 11/12/17 11/12/17 11/12/17 07:00 15:00 23:00 07:00 15:00 23:00 Intake Total 1100 ml 1139.7 ml Output Total 630 ml Balance 470 ml 1139.7 ml Intake IV Total 1100 ml 1139.7 ml Output Urine Total 630 ml # Bowel Movements 0 Result Diagram: 11/11/17210311/12/17 0930 Imaging Last Impressions Abdomen/Pelvis CT 11/11/176 Signed Impressions: Service Date/Time: Saturday, November 11, 2017 22:31 - CONCLUSION: 1. No acute abnormality seen. 2. Minimal hepatic steatosis. Son Malave MD Chest X-Ray 11/11/17 0000 Signed Impressions: Service Date/Time: Saturday, November 11, 2017 23:32 - CONCLUSION: No acute disease. Son Malave MD Objective Remarks GENERAL: Alert, oriented 3, NAD. Somewhat lethargic. SKIN: Warm and dry. HEAD: Normocephalic. EYES: No scleral icterus. No injection or drainage. NECK: Supple, trachea midline. No JVD or lymphadenopathy. CARDIOVASCULAR: Regular rate and rhythm without murmurs, gallops, or rubs. RESPIRATORY: Breath sounds equal bilaterally. No accessory muscle use. GASTROINTESTINAL: Tenderness on palpation over epigastric and left lower quadrant. No distention. MUSCULOSKELETAL: No cyanosis, or edema. BACK: Nontender without obvious deformity. No CVA tenderness. Procedures None A/P Problem List: (1) DKA (diabetic ketoacidoses) ICD Code: E13.10 - DKA (diabetic ketoacidoses) Status: Acute (2) Lactic acidosis ICD Code: E87.2 - Acidosis (3) Hematemesis ICD Code: K92.0 - Hematemesis Status: Acute (4) Leukocytosis ICD Code: D72.829 - Leukocytosis Status: Acute Assessment and Plan This is a 41-year-old male with a PMH of DM, Anxiety, Depression, Bipolar Disorder, Seizure Disorder, Non-Compliance, h/o Pancreatitis and GERD who presented to the ER w/ complaints of abdominal pain, nausea/vomiting and hematemesis x4-5 days. On arrival, BP 114/88, HR 139, O2 sat 98% on RA, Afebrile. WBC 21.9. Creatinine 2.43, previously 0.91 on 09/03/15. CO2 10.8. BS 562, Lactic Acid 8.8. B-hydroxy 9.37. ABG w/ pH 7.14. Started on DKA Protocol. CT Abd/Pelvis w/ no acute findings. - Diabetic ketoacidosis - Diabetes mellitus - We'll stop IV insulin drip and start patient on subcutaneous insulin. Patient is tolerating diet well. We'll advance diet - Continue Levemir 10 units to 12 hours. We'll try to switch to daily at bedtime only. - Continue sliding scale insulin and add pre-meal insulin 4 units aspart 3 times a day before meals with holding parameters. - Hemoglobin A1c 11.2 - History of seizure disorder - continue Keppra 750 daily - Transfer to the floor. Out of bed with assistance. Probable discharge on 11/13/2017. Full code. SCDs. Discussed with RN. Problem Qualifiers (1) DKA (diabetic ketoacidoses): Qualified Codes: E10.10 - Type 1 diabetes mellitus with ketoacidosis without coma (2) Hematemesis: Qualified Codes: K92.0 - Hematemesis Alex Mendez DO Nov 12, 2017 2:35 pm
[2017-11-12] MEDS: INSULIN ASPART SUPPLEMENTAL SCALE SQ SCH ×2 (17:00→21:15)
[2017-11-12] MEDS: INSULIN ASPART 1,000 UNITS/10 ML VIAL SQ SCH (17:00)
[2017-11-12] MEDS: traZODone HCL 50 MG TAB PO SCH (21:14)
[2017-11-12] MEDS: QUEtiapine FUMARATE 25 MG TAB PO SCH (21:14)
[2017-11-13] VITALS (20 sets, daily range): BP systolic 115–143; BP diastolic 72–93; PULSE 67–106; RESP 14–31; TEMP 98.1–99.4; O2SAT 96–100
[2017-11-13] MEDS: MORPHINE SULFATE 2 MG/ML INJ IV PUSH PRN ×4 (00:42→18:34)
[2017-11-13] MEDS: CHLORHEXIDINE GLUCONATE 2 % 1 PACK (2 CLOTHS) TOP SCH (04:00)
[2017-11-13] MEDS: INSULIN ASPART 1,000 UNITS/10 ML VIAL SQ SCH ×3 (08:00→17:00)
[2017-11-13] MEDS: INSULIN ASPART SUPPLEMENTAL SCALE SQ SCH ×4 (08:00→21:23)
[2017-11-13] MEDS: INSULIN DETEMIR 100 UNITS/ML VIAL SQ SCH ×2 (08:24→21:15)
[2017-11-13] MEDS: levETIRAcetam 250 MG TAB PO SCH (08:24)
[2017-11-13] MEDS: DOCUSATE SODIUM 50 MG/SENNA 8.6 MG TAB PO SCH ×2 (08:25→21:15)
[2017-11-13] MEDS: ACETAMINOPHEN/HYDROcodone 325 MG/5 MG TAB PO PRN (08:33)
[2017-11-13] MEDS: SODIUM CHLORIDE 0.9% FLUSH 10 ML FLUSH IV FLUSH SCH ×2 (08:46→21:14)
--- NOTE | 2017-11-13 10:05 | HHI.PR ---
Subjective Remarks Follow-up for abdominal pain, hematemesis, nausea vomiting, DKA. Patient complains of abdominal pain and feeling very week. With RN's help, I tried to stand him up and he felt very weak to stand up on the floor. However, later RN/ Charge nurse were able to stand him up. PT also evaluated patient and recommended no rehab. Objective Vitals Vital Signs Date Time Temp Pulse Resp B/P (MAP) Pulse Ox O2 Delivery O2 Flow Rate FiO2 11/13/17 09:18 106 24 143/88 (106) 100 11/13/17 09:00 94 27 134/88 (103) 99 11/13/17 08:00 99.4 91 29 122/81 (95) 97 11/13/17 08:00 91 11/13/17 07:00 86 20 125/82 (96) 96 11/13/17 06:42 18 11/13/17 06:00 90 11/13/17 04:00 98.4 77 16 122/74 (90) 96 11/13/17 04:00 77 11/13/17 02:00 82 11/13/17 00:00 98.1 92 19 123/72 (89) 98 11/13/17 00:00 92 11/12/17 22:00 100 11/12/17 20:00 98.3 92 20 124/78 (93) 96 11/12/17 20:00 92 11/12/17 18:00 109 11/12/17 16:00 97.5 96 26 146/87 (106) 97 11/12/17 16:00 96 11/12/17 15:00 95 23 148/85 (106) 98 11/12/17 14:00 96 11/12/17 14:00 96 26 124/66 (85) 99 11/12/17 13:00 92 23 122/72 (89) 98 11/12/17 12:00 97.5 100 19 123/67 (85) 97 11/12/17 12:00 100 11/12/17 11:00 100 19 114/66 (82) 99 I/O 11/12/17 11/12/17 11/12/17 11/13/17 11/13/17 11/13/17 07:00 15:00 23:00 07:00 15:00 23:00 Intake Total 1100 ml 1139.7 ml 240 ml 480 ml Output Total 630 ml 200 ml 1150 ml 180 ml Balance 470 ml 1139.7 ml 40 ml -670 ml -180 ml Intake Oral 240 ml 480 ml IV Total 1100 ml 1139.7 ml Output Urine Total 630 ml 200 ml 1150 ml 180 ml # Voids 1 # Bowel Movements 0 0 Result Diagram: 11/11/17 2104 11/12/17 0930 Imaging Last Impressions Abdomen/Pelvis CT 11/11/17 2236 Signed Impressions: Service Date/Time: Saturday, November 11, 2017 22:31 - CONCLUSION: 1. No acute abnormality seen. 2. Minimal hepatic steatosis. Son Malave MD Chest X-Ray 11/11/17 0000 Signed Impressions: Service Date/Time: Saturday, November 11, 2017 23:32 - CONCLUSION: No acute disease. Son Malave MD Objective Remarks GENERAL: Alert, oriented 3, NAD. Somewhat lethargic. SKIN: Warm and dry. HEAD: Normocephalic. EYES: No scleral icterus. No injection or drainage. NECK: Supple, trachea midline. No JVD or lymphadenopathy. CARDIOVASCULAR: Regular rate and rhythm without murmurs, gallops, or rubs. RESPIRATORY: Breath sounds equal bilaterally. No accessory muscle use. GASTROINTESTINAL: Tenderness on palpation over epigastric and left lower quadrant. No distention. MUSCULOSKELETAL: No cyanosis, or edema. BACK: Nontender without obvious deformity. No CVA tenderness. Procedures None A/P Problem List: (1) DKA (diabetic ketoacidoses) ICD Code: E13.10 - DKA (diabetic ketoacidoses) Status: Acute (2) Lactic acidosis ICD Code: E87.2 - Acidosis (3) Hematemesis ICD Code: K92.0 - Hematemesis Status: Acute (4) Leukocytosis ICD Code: D72.829 - Leukocytosis Status: Acute Assessment and Plan This is a 42-year-old male with a PMH of DM, Anxiety, Depression, Bipolar Disorder, Seizure Disorder, Non-Compliance, h/o Pancreatitis and GERD who presented to the ER w/ complaints of abdominal pain, nausea/vomiting and hematemesis x4-5 days. On arrival, BP 114/88, HR 139, O2 sat 98% on RA, Afebrile. WBC 21.9. Creatinine 2.43, previously 0.91 on 09/03/15. CO2 10.8. BS 562, Lactic Acid 8.8. B-hydroxy 9.37. ABG w/ pH 7.14. Started on DKA Protocol. CT Abd/Pelvis w/ no acute findings. - Diabetic ketoacidosis - Diabetes mellitus - Currently on subcutaneous insulin. Patient is tolerating diet well. We' ll advance diet - Continue Levemir 10 units to 12 hours. - Continue sliding scale insulin and add pre-meal insulin 4 units aspart 3 times a day before meals with holding parameters. - Hemoglobin A1c 11.2 - Hypokalemia K+ 3.0 today. We will replace with IV and PO KCL. - AMY - Creatinine 2.43 on admission ---> 1.31 today. - History of seizure disorder - continue Keppra 750 daily - Transfer to the floor. PT recommends no rehab or HH. Probable discharge on 11/14/2017. Full code. SCDs. Discussed with RN. Problem Qualifiers (1) DKA (diabetic ketoacidoses): Qualified Codes: E10.10 - Type 1 diabetes mellitus with ketoacidosis without coma (2) Hematemesis: Qualified Codes: K92.0 - Hematemesis Alex Mendez DO Nov 13, 2017 10:05
[2017-11-13 10:06] LABS: AUTOMATED NEUTROPHIL # 6.4 TH/MM3 (1.8-7.7); BASOPHIL # 0.1 TH/MM3 (0-0.2); BASOPHIL % 0.8 % (0.0-2.0); EOSINOPHIL # 0.1 TH/MM3 (0-0.4); EOSINOPHIL % 1.2 % (0.0-4.0); HEMOGLOBIN 14.2 GM/DL (13.0-17.0); LYMPH % 27.5 % (9.0-44.0); LYMPHOCYTE # 2.8 TH/MM3 (1.0-4.8); MEAN CELL VOLUME 88.9 FL (80.0-100.0); MEAN CORPUSCULAR HEMOGLOBIN 30.1 PG (27.0-34.0); MEAN CORPUSCULAR HGB CONC 33.9 % (32.0-36.0); MEAN PLATELET VOLUME 7.3 FL (7.0-11.0); MONO % 8.3 % (0.0-8.0); MONOCYTE # 0.9 TH/MM3 (0-0.9); NEUT % 62.2 % (16.0-70.0); PLATELET COUNT 267 TH/MM3 (150-450); RED BLOOD COUNT 4.72 MIL/MM3 (4.50-5.90); RED CELL DISTRIBUTION WIDTH 13.7 % (11.6-17.2); WHITE BLOOD COUNT 10.3 TH/MM3 (4.0-11.0)
[2017-11-13 10:31] LABS: BICARBONATE 24.8 MEQ/L (21.0-32.0); CALCIUM 8.7 MG/DL (8.5-10.1); CREATININE 1.31 MG/DL (0.60-1.30)
[2017-11-13] MEDS ORDERED: PANTOPRAZOLE SODIUM 40 MG VIAL IV PUSH ONE (13:00)
[2017-11-13] MEDS: POTASSIUM CHLOR 20 MEQ PREMIX 100 ML IV SCH ×2 (17:38→21:22)
[2017-11-13] MEDS: traZODone HCL 50 MG TAB PO SCH (21:14)
[2017-11-13] MEDS: QUEtiapine FUMARATE 25 MG TAB PO SCH (21:15)
[2017-11-13] MEDS: ONDANSETRON HCL 4 MG/2 ML VIAL IVP PRN (21:15)
[2017-11-13] MEDS: POTASSIUM CHLORIDE 20 MEQ CONTROLLED RELEASE TAB PO SCH (21:15)
[2017-11-14] VITALS (7 sets, daily range): BP systolic 97–133; BP diastolic 61–79; PULSE 68–86; RESP 16–20; TEMP 97.9–98.3; O2SAT 95–97
[2017-11-14] MEDS: CHLORHEXIDINE GLUCONATE 2 % 1 PACK (2 CLOTHS) TOP SCH (04:00)
[2017-11-14] MEDS ORDERED: LEVEMIR SQ (07:42)
[2017-11-14] MEDS ORDERED: METF500T PO (07:43)
[2017-11-14] MEDS ORDERED: NOVOLOGP2 SQ (07:43)
--- NOTE | 2017-11-14 07:45 | HHI.DS ---
Discharge Summary Admission Date Nov 11, 2017 at 11:09 pm Discharge Date: Nov 14, 2017 Admitting Diagnosis DKA/Hematemesis/Dehydration (1) DKA (diabetic ketoacidoses) ICD Code: E13.10 - DKA (diabetic ketoacidoses) Status: Acute (2) Lactic acidosis ICD Code: E87.2 - Acidosis (3) Hematemesis ICD Code: K92.0 - Hematemesis Status: Acute (4) Leukocytosis ICD Code: D72.829 - Leukocytosis Status: Acute Procedures None Brief History - From Admission This is a 41-year-old male with a PMH of DM, Anxiety, Depression, Bipolar Disorder, Seizure Disorder, Non-Compliance, h/o Pancreatitis and GERD who presented to the ER w/ complaints of abdominal pain, nausea/vomiting and hematemesis x4-5 days. Reports generalized abdominal pain, intermittent, cramping, severe 8/10, non-radiating, associated w/ nausea/vomiting. Today, noted episode of bloody emesis. Denies fever, chills, diarrhea or sick contacts. Does not check BS regularly, non-compliant w/ medications. On arrival, BP 114/88, HR 139, O2 sat 98% on RA, Afebrile. WBC 21.9. Creatinine 2.43, previously 0.91 on 09/03/15. CO2 10.8. BS 562, Lactic Acid 8.8. B- hydroxy 9.37. ABG w/ pH 7.14. Started on DKA Protocol. CT Abd/Pelvis w/ no acute findings. CBC/BMP: 11/13/17 0947 11/13/17 0947 Significant Findings Laboratory Tests Test 11/11/17 20:59 11/11/17 21:02 11/11/17 21:04 11/11/17 21:41 Blood Urea Nitrogen 32 MG/DL (7-18) Creatinine 2.43 MG/DL (0.60-1.30) Random Glucose 562 MG/DL (74-106) Total Protein 9.0 GM/DL (6.4-8.2) Phosphorus Level 8.9 MG/DL (2.5-4.9) Alkaline Phosphatase 138 U/L (45-117) Aspartate Amino Transf (AST/SGOT) 10 U/L (15-37) Sodium Level 128 MEQ/L (136-145) Chloride Level 86 MEQ/L (98-107) Carbon Dioxide Level 10.8 MEQ/L (21.0-32.0) Anion Gap 31 MEQ/L (5-15) Estimat Glomerular Filtration Rate 30 ML/MIN (>89) B-Hydroxybutyrate 9.37 MMOL/L (0.00-0.39) Lactic Acid Level 8.8 mmol/L (0.4-2.0) White Blood Count 21.9 TH/MM3 (4.0-11.0) Red Blood Count 6.11 MIL/MM3 (4.50-5.90) Hemoglobin 18.1 GM/DL (13.0-17.0) Hematocrit 56.4 % (39.0-51.0) Neutrophils (%) (Auto) 90.4 % (16.0-70.0) Lymphocytes (%) (Auto) 5.4 % (9.0-44.0) Neutrophils # (Auto) 19.8 TH/MM3 (1.8-7.7) Activated Partial Thromboplast Time LESS THAN 19.0 SEC Serum Osmolality 352 MOSM/KG (275-295) Venous Blood pH 7.14 (7.360-7.400) Venous Blood Partial Pressure CO2 33 mmHg (44-48) Venous Blood HCO3 11 mmol/L (22-26) Venous Blood Oxygen Saturation 57 % (70-76) Venous Blood Base Excess -16.5 mmol/L (-2-2) Test 11/12/17 00:00 11/12/17 00:35 11/12/17 01:30 11/12/17 04:15 Urine Glucose (UA) 1000 mg/dL (NEG) Urine Ketones 150 mg/dL (NEG) Urine Mucus FEW /lpf (OCC) Lactic Acid Level 2.1 mmol/L (0.4-2.0) Blood Urea Nitrogen 25 MG/DL (7-18) Creatinine 1.44 MG/DL (0.60-1.30) Random Glucose 169 MG/DL (74-106) Calcium Level 8.4 MG/DL (8.5-10.1) Phosphorus Level 0.8 MG/DL (2.5-4.9) Chloride Level 108 MEQ/L (98-107) Estimat Glomerular Filtration Rate 54 ML/MIN (>89) Test 11/12/17 09:30 11/13/17 09:47 Blood Urea Nitrogen 21 MG/DL (7-18) Random Glucose 193 MG/DL (74-106) 218 MG/DL (74-106) Phosphorus Level 0.8 MG/DL (2.5-4.9) Chloride Level 110 MEQ/L (98-107) Estimat Glomerular Filtration Rate 63 ML/MIN (>89) 60 ML/MIN (>89) Hemoglobin A1c 11.2 % (4.3-6.0) B-Hydroxybutyrate 2.20 MMOL/L (0.00-0.39) Monocytes (%) (Auto) 8.3 % (0.0-8.0) Creatinine 1.31 MG/DL (0.60-1.30) Potassium Level 3.0 MEQ/L (3.5-5.1) Imaging Last Impressions Abdomen/Pelvis CT 11/11/17 2236 Signed Impressions: Service Date/Time: Saturday, November 11, 2017 22:31 - CONCLUSION: 1. No acute abnormality seen. 2. Minimal hepatic steatosis. Son Malave MD Chest X-Ray 11/11/17 0000 Signed Impressions: Service Date/Time: Saturday, November 11, 2017 23:32 - CONCLUSION: No acute disease. Son Malave MD PE at Discharge GENERAL: Alert, oriented 3, NAD. Somewhat lethargic. SKIN: Warm and dry. HEAD: Normocephalic. EYES: No scleral icterus. No injection or drainage. NECK: Supple, trachea midline. No JVD or lymphadenopathy. CARDIOVASCULAR: Regular rate and rhythm without murmurs, gallops, or rubs. RESPIRATORY: Breath sounds equal bilaterally. No accessory muscle use. GASTROINTESTINAL: Tenderness on palpation over epigastric and left lower quadrant. No distention. MUSCULOSKELETAL: No cyanosis, or edema. BACK: Nontender without obvious deformity. No CVA tenderness. Pt update on day of discharge Patient is doing well. No acute concerns. No fever, chills. Hospital Course This is a 42-year-old male with a PMH of DM, Anxiety, Depression, Bipolar Disorder, Seizure Disorder, Non-Compliance, h/o Pancreatitis and GERD who presented to the ER w/ complaints of abdominal pain, nausea/vomiting and hematemesis x4-5 days. On arrival, BP 114/88, HR 139, O2 sat 98% on RA, Afebrile. WBC 21.9. Creatinine 2.43, previously 0.91 on 09/03/15. CO2 10.8. BS 562, Lactic Acid 8.8. B-hydroxy 9.37. ABG w/ pH 7.14. Started on DKA Protocol. CT Abd/Pelvis w/ no acute findings. - Diabetic ketoacidosis - Diabetes mellitus - Currently on subcutaneous insulin. Patient is tolerating diet well. We' ll advance diet - Continue Levemir 10 units to 12 hours. - Continue sliding scale insulin and add pre-meal insulin 4 units aspart 3 times a day before meals with holding parameters. - Hemoglobin A1c 11.2 - Will add metformin on discharge as well. - Hypokalemia K+ 3.0. s/p replacement with IV and PO KCL. - AMY - Creatinine 2.43 on admission ---> 1.31 today. - History of seizure disorder - continue Keppra 750 daily - PT recommended no rehab or home health PT. Pt Condition on Discharge: Good Discharge Disposition: Discharge Home Discharge Time: <= 30 minutes Discharge Instructions DIET: Follow Instructions for: Diabetic Diet Activities you can perform: Regular-No Restrictions Follow up Referrals: Endocrinology - 1 Week PCP Follow-up - 1 Week New Medications: Insulin Aspart Inj (Novolog Inj) 1,000 Unit/10 Ml Vial 1-9 UNITS SQ ACHS for Blood Sugar Management, #10 ML 0 Refills Max dose at bedtime:( )units; sugars less than 70,(0)units; sugars 150-199,(1) unit; sugars 200-249,(3) units; sugars 250-299,(5) units; sugars 300-349,(7) units; sugars greater than 349,(9) units Insulin Detemir Inj (Levemir Inj) 1,000 unit/ 10 ML Vial 12 UNITS SQ HS for Blood Sugar Management for 30 Days, VIAL 0 Refills Do not mix with any other Insulin. Metformin (Metformin) 500 Mg Tab 500 MG PO BIDPC for Blood Sugar Management, #60 TAB 0 Refills Continued Medications: Levetiracetam (Keppra) 750 Mg Tab 750 MG PO DAILY for Control Seizures, #60 TAB 0 Refills Quetiapine (Seroquel) 50 Mg Tab 50 MG PO HS, #30 TAB 0 Refills Trazodone (Trazodone) 50 Mg Tab 50 MG PO HS for Control Depression, #30 TAB 0 Refills Discontinued Medications: Insulin Human Regular Inj (Humulin R Inj) 1,000 Unit/10 Ml Vial 2-12 UNITS SQ ACHS for Blood Sugar Management, #10 ML 0 Refills Max dose at bedtime:( )units; sugars < 70 (0)units; sugars 150-199, (2)units; sugars 200-249,(4)units; sugars 250-299, (7)units; sugars 300-349,(10)units; sugars more than 349,(12)units. Alex Mendez DO Nov 14, 2017 07:45
[2017-11-14] MEDS: INSULIN ASPART SUPPLEMENTAL SCALE SQ SCH (08:00)
[2017-11-14] MEDS: DOCUSATE SODIUM 50 MG/SENNA 8.6 MG TAB PO SCH (08:41)
[2017-11-14] MEDS: POTASSIUM CHLORIDE 20 MEQ CONTROLLED RELEASE TAB PO SCH (08:41)
[2017-11-14] MEDS: levETIRAcetam 250 MG TAB PO SCH (08:41)
[2017-11-14] MEDS: INSULIN ASPART 1,000 UNITS/10 ML VIAL SQ SCH (08:41)
[2017-11-14] MEDS: SODIUM CHLORIDE 0.9% FLUSH 10 ML FLUSH IV FLUSH SCH (08:43)
[2017-11-14] MEDS: INSULIN DETEMIR 100 UNITS/ML VIAL SQ SCH (08:43)
[2017-11-14] MEDS: ACETAMINOPHEN/HYDROcodone 325 MG/5 MG TAB PO PRN (08:50)
[2017-11-14] MEDS ORDERED: PANTOPRAZOLE SOD 40 MG DELAYED RELEASE TAB PO SCH (09:00)
== END 2017-11-14 13:00 | disposition home or self-care (01) | DRG 638 ==
LOC: NEPE 19:46 → NEDA 23:09 → HIME 11-12 01:15
PROVIDERS: ADMIT Hospitalist; ATTEND Hospitalist
DX: E10.10 Type 1 diabetes mellitus with ketoacidosis without coma (principal); N17.9 Acute kidney failure, unspecified; K92.0 Hematemesis; E86.0 Dehydration; E87.6 Hypokalemia; D72.829 Elevated white blood cell count, unspecified; F31.9 Bipolar disorder, unspecified; K21.9 Gastro-esophageal reflux disease without esophagitis; G40.909 Epilepsy, unspecified, not intractable, without status epilepticus; Z79.4 Long term (current) use of insulin; Z88.0 Allergy status to penicillin; Z88.8 Allergy status to other drugs, medicaments and biological substances
CPT/HCPCS: 71045; 74176; 80048; 80053; 80202; 81001; 82010; 82805; 82948; 83036; 83605; 83690; 83735; 83930; 84100; 85025; 85610; 85730; 87641; 96361; 96374; 96375; C9113; J1815; J1817; J2060; J2270; J2405; J3480; J7030; J7042

== ENCOUNTER 2018-01-28 12:36 | Emergency (ER) | payer MEDICAID ==
[~2018-01-28] VITALS: Ht 175.3 cm; Wt 122.7 kg
[~2018-01-28 12:36] MED LIST changes: -INSU100V2 SQ; +LEVEMIR SQ; +METF500T PO; +NOVOLOGP2 SQ
[2018-01-28] MEDS ORDERED: IOHEXOL 350 MG/ML 10 ML VIAL (for RAD DIAG) IVCONTRAST ONE (12:37)
[2018-01-28 13:03] VITALS: BP 163/87; PULSE 99; RESP 18; TEMP 98.5; O2SAT 97
[2018-01-28 14:03] LABS: AUTOMATED NEUTROPHIL # 16.7 TH/MM3 (1.8-7.7); BASOPHIL % 0.2 % (0.0-2.0); EOSINOPHIL # 0.1 TH/MM3 (0-0.4); EOSINOPHIL % 0.4 % (0.0-4.0); HEMATOCRIT 47.8 % (39.0-51.0); HEMOGLOBIN 15.8 GM/DL (13.0-17.0); LYMPH % 7.8 % (9.0-44.0); LYMPHOCYTE # 1.5 TH/MM3 (1.0-4.8); MEAN CELL VOLUME 88.8 FL (80.0-100.0); MEAN CORPUSCULAR HEMOGLOBIN 29.4 PG (27.0-34.0); MEAN CORPUSCULAR HGB CONC 33.1 % (32.0-36.0); MEAN PLATELET VOLUME 8.2 FL (7.0-11.0); MONO % 2.6 % (0.0-8.0); MONOCYTE # 0.5 TH/MM3 (0-0.9); PLATELET COUNT 345 TH/MM3 (150-450); RED BLOOD COUNT 5.39 MIL/MM3 (4.50-5.90); WHITE BLOOD COUNT 18.7 TH/MM3 (4.0-11.0)
[2018-01-28 14:14] LABS: BILIRUBIN, URINE NEG (NEG); BLOOD, URINE NEG (NEG); GLUCOSE,URINE 1000 mg/dL (NEG); KETONE, URINE TRACE mg/dL (NEG); NITRITE,URINE NEG (NEG); PH, URINE 8.5 (5.0-8.5); URINE COLOR LIGHT-YELLOW (YELLW/STRAW); URINE LEUKOCYTE ESTERASE NEG (NEG)
[2018-01-28 14:16] LABS: ALT (GPT) 22 U/L (12-78)
[2018-01-28 14:17] LABS: ALKALINE PHOSPHATASE 135 U/L (45-117); TOTAL BILIRUBIN ADULT 0.3 MG/DL (0.2-1.0); TOTAL PROTEIN 7.7 GM/DL (6.4-8.2)
[2018-01-28 14:18] LABS: ALBUMIN 4.3 GM/DL (3.4-5.0); AST (GOT) 18 U/L (15-37); BICARBONATE 29.1 MEQ/L (21.0-32.0); BLOOD UREA NITROGEN 11 MG/DL (7-18); CALCIUM 9.8 MG/DL (8.5-10.1); CHLORIDE 100 MEQ/L (98-107); CREATININE 1.27 MG/DL (0.60-1.30); GLOMERULAR FILTRATION RATE 62 ML/MIN (>89); GLUCOSE,RANDOM 372 MG/DL (74-106); SODIUM (NA) 137 MEQ/L (136-145)
[2018-01-28 14:30] VITALS: BP 134/72; PULSE 78; RESP 16; O2SAT 100
[2018-01-28] MEDS ORDERED: SODIUM CHLOR 0.9% 1000 ML INJ 1,000 ML IV SCH (14:34)
--- NOTE | 2018-01-28 14:39 | PD ---
HPI Chief Complaint: Abdominal Pain Time Seen by Provider: 14:24 Travel History International Travel<30 days: No Contact w/Intl Traveler<30days: No Traveled to known affect area: No History of Present Illness HPI Patient comes emergency department for evaluation of epigastric abdominal pain that began yesterday. Patient reports pain feels similar to the pancreatitis pain that he has had in the past. Describes pain as a stabbing twisting sensation in his epigastric region and radiates to his left lower quadrant. Patient denies anything making symptoms better or worse. Denies any loss or change in bowel or bladder, chest pain, shortness of breath, fevers, headache, numbness or tingling anywhere. Patient states that he tries member take his medication but does not always remember to take them. Patient states that his blood sugars constantly run between 300 and 400 even with the medication. Patient states that he was waiting for his friend to come out of the hospital with someone saw him vomiting recommend he get evaluated. Reports vomit is nonbloody nonbilious. He states otherwise he would not have come to the ER. PFSH Past Medical History Hx Anticoagulant Therapy: No Arthritis: No Asthma: Yes (COMES AND GOES) Autoimmune Disease: No Bipolar Disorder: Yes Anxiety: Yes Depression: Yes Heart Rhythm Problems: No Cancer: No Cardiovascular Problems: No High Cholesterol: No Chemotherapy: No Chest Pain: No Congestive Heart Failure: No COPD: No Cerebrovascular Accident: No Diabetes: Yes Diminished Hearing: No Endocrine: Yes (pancreatitis) Gastrointestinal Disorders: Yes (HX OF ULCERS) GERD: Yes Genitourinary: No Hiatal Hernia: No Immune Disorder: No Implanted Vascular Access Dvce: No Kidney Stones: No Musculoskeletal: No Neurologic: Yes Psychiatric: Yes (dyslexia) Reproductive: No Respiratory: No Migraines: No Pancreatitis: Yes Radiation Therapy: No Renal Failure: No Seizures: Yes Sickle Cell Disease: No Sleep Apnea: No Ulcer: Yes Past Surgical History Abdominal Surgery: No AICD: No Arteriovenous Shunt: No Cardiac Surgery: No Ear Surgery: No Endocrine Surgery: No Eye Surgery: No Genitourinary Surgery: No Gynecologic Surgery: No Hysterectomy: No Insulin Pump: No Joint Replacement: No Pacemaker: No Thoracic Surgery: No Social History Alcohol Use: No (RARE) Tobacco Use: No Substance Use: Yes (WEED ONCE IN A WHILE ) Allergies-Medications (Allergen,Severity, Reaction): Coded Allergies: Pork/Porcine Containing Products (Verified Allergy, Severe, ALLERGIC TO PORK INSULIN ONLY, 11/11/17) insulin aspart (Verified Allergy, Severe, ITCHING, RASH TO PORK INSULIN ONLY, 11/11/17) insulin aspart protamine human (Verified Allergy, Severe, ITCHING, RASH TO PORK INSULIN ONLY, 11/11/17) insulin detemir (Verified Allergy, Severe, ITCHING, RASH TO PORK INSULIN ONLY, 11/11/17) insulin glargine (Verified Allergy, Severe, ITCHING, RASH TO PORK INSULIN ONLY, 11/11/17) insulin isophane (NPH) (Verified Allergy, Severe, ITCHING, RASH TO PORK INSULIN ONLY, 11/11/17) insulin lispro (Verified Allergy, Severe, ITCHING, RASH TO PORK INSULIN ONLY, 11/11/17) insulin regular (Verified Allergy, Severe, ITCHING, RASH TO PORK INSULIN ONLY, 11/11/17) penicillin G (Verified Allergy, Severe, HIVES, 11/11/17) Reported Meds & Prescriptions Reported Meds & Active Scripts Active Zofran Odt (Ondansetron Odt) 4 Mg Tab 4 Mg SL Q6HR PRN Metformin (Metformin HCl) 500 Mg Tab 500 Mg PO BIDPC Novolog Inj (Insulin Aspart) 1,000 Unit/10 Ml Vial 1-9 Units SQ ACHS Max dose at bedtime:( )units; sugars less than 70,(0)units; sugars 150-199,(1) unit; sugars 200-249,(3) units; sugars 250-299,(5) units; sugars 300-349,(7) units; sugars greater than 349,(9) units Levemir Inj (Insulin Detemir) 1,000 unit/ 10 ML Vial 12 Units SQ HS 30 Days Do not mix with any other Insulin. Reported Trazodone (Trazodone HCl) 50 Mg Tab 50 Mg PO HS Seroquel (Quetiapine Fumarate) 50 Mg Tab 50 Mg PO HS Keppra (Levetiracetam) 750 Mg Tab 750 Mg PO DAILY Review of Systems Except as stated in HPI: all other systems reviewed are Neg Physical Exam Narrative GENERAL: Well-developed, well nourished, in no acute distress, and non-ill appearing. SKIN: Focused skin assessment warm and dry. HEAD: Atraumatic. Normocephalic. EYES: Pupils equal and round. EOMI. No scleral icterus. No injection or drainage. ENT: No nasal bleeding or discharge. Mucous membranes pink and moist. NECK: Trachea midline. No JVD. Supple. No nuclear rigidity. CARDIOVASCULAR: Regular rate and rhythm. No murmur appreciated. RESPIRATORY: No accessory muscle use. No respiratory distress. Clear to auscultation. Breath sounds equal bilaterally. GASTROINTESTINAL: Abdomen soft, nondistended, and no guarding. Hepatic and splenic margins not palpable. Normal bowel sounds x4. No pulsatile mass. Patient reports tenderness greatest left lower quadrant to palpation. MUSCULOSKELETAL: No obvious deformities. No clubbing. No cyanosis. No edema. Full range of motion. NEUROLOGICAL: Awake and alert. No obvious cranial nerve deficits. Motor grossly within normal limits. Normal speech. PSYCHIATRIC: Appropriate mood and affect; insight and judgment normal. Data Data Last Documented VS Vital Signs Date Time Temp Pulse Resp B/P (MAP) Pulse Ox O2 Delivery O2 Flow Rate FiO2 01/28/18 18:27 78 16 136/86 (103) 99 01/28/18 14:30 Room Air 01/28/18 13:03 98.5 Orders Orders Complete Blood Count With Diff (01/28/18 13:06) Comprehensive Metabolic Panel (01/28/18 13:06) Lipase (01/28/18 13:06) Prothrombin Time / Inr (Pt) (01/28/18 13:06) Act Partial Throm Time (Ptt) (01/28/18 13:06) Urinalysis - C+S If Indicated (01/28/18 13:06) [place] (Li) (01/28/18 14:34) Magnesium (Mg) (01/28/18 14:34) Beta Hydroxybutyrate (Acetone) (01/28/18 14:34) Ct Abd/Pel W Iv Contrast(Rout) (01/28/18 14:34) Iv Access Insert/Monitor (01/28/18 14:34) Ecg Monitoring (01/28/18 14:34) Oximetry (01/28/18 14:34) Ondansetron Inj (Zofran Inj) (01/28/18 14:45) Sodium Chlor 0.9% 1000 Ml Inj (Ns 1000 M (01/28/18 14:34) Sodium Chloride 0.9% Flush (Ns Flush) (01/28/18 14:45) Iohexol 350 Inj (Omnipaque 350 Inj) (01/28/18 12:37) Ed Discharge Order (01/28/18 18:04) Labs Laboratory Tests Test 01/28/18 13:30 01/28/18 13:40 01/28/18 14:40 Urine Color LIGHT-YELLOW Urine Turbidity CLEAR Urine pH 8.5 Urine Specific [place] 1.039 Urine Protein NEG mg/dL Urine Glucose (UA) 1000 mg/dL Urine Ketones TRACE mg/dL Urine Occult Blood NEG Urine Nitrite NEG Urine Bilirubin NEG Urine Urobilinogen LESS THAN 2.0 MG/DL Urine Leukocyte Esterase NEG Urine WBC LESS THAN 1 /hpf Microscopic Urinalysis Comment CULT NOT INDICATED White Blood Count 18.7 TH/MM3 Red Blood Count 5.39 MIL/MM3 Hemoglobin 15.8 GM/DL Hematocrit 47.8 % Mean Corpuscular Volume 88.8 FL Mean Corpuscular Hemoglobin 29.4 PG Mean Corpuscular Hemoglobin Concent 33.1 % Red Cell Distribution Width 14.0 % Platelet Count 345 TH/MM3 Mean Platelet Volume 8.2 FL Neutrophils (%) (Auto) 89.0 % Lymphocytes (%) (Auto) 7.8 % Monocytes (%) (Auto) 2.6 % Eosinophils (%) (Auto) 0.4 % Basophils (%) (Auto) 0.2 % Neutrophils # (Auto) 16.7 TH/MM3 Lymphocytes # (Auto) 1.5 TH/MM3 Monocytes # (Auto) 0.5 TH/MM3 Eosinophils # (Auto) 0.1 TH/MM3 Basophils # (Auto) 0.0 TH/MM3 CBC Comment AUTO DIFF Differential Comment AUTO DIFF CONFIRMED Platelet Estimate NORMAL Platelet Morphology Comment NORMAL Blood Urea Nitrogen 11 MG/DL Creatinine 1.27 MG/DL Random Glucose 372 MG/DL Total Protein 7.7 GM/DL Albumin 4.3 GM/DL Calcium Level 9.8 MG/DL Alkaline Phosphatase 135 U/L Aspartate Amino Transf (AST/SGOT) 18 U/L Alanine Aminotransferase (ALT/SGPT) 22 U/L Total Bilirubin 0.3 MG/DL Sodium Level 137 MEQ/L Potassium Level 4.6 MEQ/L Chloride Level 100 MEQ/L Carbon Dioxide Level 29.1 MEQ/L Anion Gap 8 MEQ/L Estimat Glomerular Filtration Rate 62 ML/MIN Lipase 117 U/L Prothrombin Time 9.4 SEC Prothromb Time International Ratio 0.9 RATIO Activated Partial Thromboplast Time 22.0 SEC Magnesium Level 1.9 MG/DL [place] Level LESS THAN 0.1 MEQ/L B-Hydroxybutyrate 0.40 MMOL/L MDM Medical Decision Making Medical Screen Exam Complete: Yes Emergency Medical Condition: Yes Interpretation(s) Last Impressions Abdomen/Pelvis CT 01/28/18 1434 Signed Impressions: Service Date/Time: Sunday, January 28, 2018 16:06 - CONCLUSION: 1. Stool throughout the colon possibly representing an element of constipation. 2. Retrocecal appendix with the tip just medial to the right hepatic lobe. Appendix is otherwise radiographically normal. 3. Mild hepatic fatty infiltration. 4. Otherwise, nothing acute to explain current clinical symptoms. Adria Blas MD Differential Diagnosis Pancreatitis, gastritis, diverticulitis, constipation, obstipation, small bowel obstruction, metabolic disturbance Narrative Course The patient presented with upper epigastric abdominal pain suspicious for gastritis with mild constipation. There was no significant history of diarrhea and no fever. The patient appeared comfortable, well hydrated and the abdominal exam was unremarkable and minimal to nontender to me. Laboratory and radiographic evaluation revealed no significant abnormality. There was no evidence of an acute, surgical abdomen at this time. There was no clinical evidence to support cholecystitis/cholelithiasis, pancreatitis, perforation of gastric ulcer, colitis, diverticulitis, bacterial peritonitis, obstruction, volvulus, early appendicitis, or hernial incarceration or strangulation nor significant GIB at this time. There was no evidence to support vascular pathology such as AAA, mesenteric ischemia. There was also no clinical evidence by history, exam or risk factors to suggest atypical presentation of cardiac disease such as ACS, AMI or atypical angina. No evidence to suggest genitourinary etiology as well. During the course of the ED visit, the patient noted improvement. Clinical picture was discussed with the patient, as well as plan of care. The patient was instructed to follow up with their physician. Abdominal pain warnings were discussed with the patient. The patient is to return if worsens, pain worsens or changes, develop fever, inability to tolerate fluids with or without vomiting, unable to establish follow up or as needed. The patient agrees with plan. Patient in no obvious distress upon re-evaluation. All pertinent laboratory/ Radiology result(s) discussed with patient. Patient was asked if they wanted to speak to my attending, which the patient did not wish to do at this time. Discussed patient with Dr. Casas prior to discharge, who is in agreement plan of care and disposition. Any questions/concerns in reference to patient diagnosis/condition discussed and clarified prior to patient's discharge. Reinforced sheer importance of close follow up with patient's primary physician or primary care clinic. Instructed patient to return to ED immediately, if symptoms return/worsen. Patient showed understanding of above instructions. Further instructions and recommendations were detailed in discharge paperwork. Patient ambulated without difficulty out of ED at discharge. Diagnosis Primary Impression: Nausea & vomiting Qualified Codes: R11.2 - Nausea with vomiting, unspecified Additional Impression: Constipation Qualified Codes: K59.00 - Constipation, unspecified Referrals: [facility] Patient Instructions: Abdominal Pain (ED), Acute Nausea and Vomiting (ED), Constipation (ED), General Instructions Additional Instructions: Follow-up with your primary care physician 1-2 days for reevaluation. Take all medication as prescribed. Drink plenty of non-caffeinated nonalcoholic fluids. Use [id number] stool softener and laxatives as needed for constipation. Follow instructions on the packaging. Return to the emergency department if symptoms get worse. Med/Other Pt SpecificInfo: Prescription(s) given Scripts Ondansetron Odt (Zofran Odt) 4 Mg Tab 4 MG SL Q6HR Y for Nausea/Vomiting, #15 TAB 0 Refills Prov: Svaage Casas MD 01/28/18 Disposition: 01 DISCHARGE HOME Condition: Stable Lonnie Krause Jan 28, 2018 14:39
[2018-01-28] MEDS ORDERED: ONDANSETRON HCL 4 MG/2 ML VIAL IVP ONE (14:45)
[2018-01-28] MEDS ORDERED: SODIUM CHLORIDE 0.9% FLUSH 10 ML FLUSH IV FLUSH PRN (14:45)
[2018-01-28 16:00] LABS: INTERNATIONAL NORMALIZED RATIO 0.9 RATIO; PROTHROMBIN TIME - PATIENT 9.4 SEC (9.8-11.6)
[2018-01-28 16:10] LABS: MAGNESIUM 1.9 MG/DL (1.5-2.5)
--- NOTE | 2018-01-28 16:56 | RADRPT ---
EXAM DATE/TIME: 01/28/2018 16:06 [place] COMPARISON: CT ABDOMEN & PELVIS W/O CONTRAST, November 11, 2017, 22:31. CT ABDOMEN & PELVIS W CONTRAST, September 03, 2015, 5:25. INDICATIONS : Patient complains of abdominal pain with vomiting. IV CONTRAST: 92 cc Omnipaque 350 (iohexol) IV ORAL CONTRAST: No oral contrast ingested. RADIATION DOSE: 7.89 CTDIvol (mGy) MEDICAL HISTORY : Ulcers. Pancreatitis. Diabetes mellitus type 1. SURGICAL HISTORY : None. ENCOUNTER: Initial ACUITY: 1 day PAIN SCALE: 10/10 LOCATION: abdomen TECHNIQUE: Volumetric scanning of the abdomen and pelvis was performed. Using automated exposure control and ad justment of the mA and/or kV according to patient size, radiation dose was kept as low as reasonably achievable to obtain optimal diagnostic quality images. DICOM format image data is available electro nically for review and comparison. FINDINGS: LOWER LUNGS: The visualized lower lungs are clear. LIVER: Homogeneous but slightly decreased density without lesion. There is no dilation of the biliary tree. No calcified gallstones. SPLEEN: Normal size without lesion. PANCREAS: Within normal limits. KIDNEYS: Normal in size and shape. There is no mass, stone or hydronephrosis. ADRENAL GLANDS: Within normal limits. VASCULAR: There is no aortic aneurysm. BOWEL/MESENTERY: The stomach, small bowel, and colon demonstrate no acute abnormality. There is no free intraperitone al air or fluid. Large amount stool throughout the colon possibly representing an element of constipa tion. Retrocecal appendix with the tip just medial to the right hepatic lobe. The appendix is otherwi se radiographically normal. ABDOMINAL WALL: Within normal limits. RETROPERITONEUM: There is no lymphadenopathy. BLADDER: No wall thickening or mass. REPRODUCTIVE: Within normal limits. INGUINAL: There is no lymphadenopathy or hernia. MUSCULOSKELETAL: Within normal limits for patient age. CONCLUSION: 1. Stool throughout the colon possibly representing an element of constipation. 2. Retrocecal appendix with the tip just medial to the right hepatic lobe. Appendix is otherwise radi ographically normal. 3. Mild hepatic fatty infiltration. 4. Otherwise, nothing acute to explain current clinical symptoms. Adria Blas MD on January 28, 2018 at 16:48 Board Certified Radiologist. This report was verified electronically.
[2018-01-28] MEDS ORDERED: ZOFR4TAB3 SL (17:57)
[2018-01-28 18:27] VITALS: BP 136/86
== END 2018-01-28 18:39 | disposition home or self-care (01) ==
LOC: NEPE 12:36
DX: R11.2 Nausea with vomiting, unspecified (principal); R10.13 Epigastric pain; K59.00 Constipation, unspecified; E11.9 Type 2 diabetes mellitus without complications; Z79.4 Long term (current) use of insulin
CPT/HCPCS: 74177; 80053; 80178; 81001; 82010; 83690; 83735; 85025; 85610; 85730; 96374; 99285; J2405; J7030; Q9967

== ENCOUNTER 2018-03-26 21:16 | Emergency (ER) | payer MEDICAID ==
[~2018-03-26] VITALS: Ht 175.3 cm; Wt 80.0 kg
[~2018-03-26 21:16] MED LIST changes: +ZOFR4TAB3 SL
[2018-03-26] MEDS ORDERED: SODIUM CHLOR 0.9% 1000 ML INJ 1,000 ML IV SCH (21:39)
[2018-03-26 21:41] VITALS: BP 143/93; PULSE 101; RESP 18; TEMP 98.2; O2SAT 98
[2018-03-26 21:43] VITALS: O2SAT 98
[2018-03-26] MEDS ORDERED: SODIUM CHLORIDE 0.9% FLUSH 10 ML FLUSH IV FLUSH PRN (21:45)
--- NOTE | 2018-03-26 22:10 | PD ---
HPI Chief Complaint: Abdominal Pain Time Seen by Provider: 21:24 Travel History International Travel<30 days: No Contact w/Intl Traveler<30days: No Traveled to known affect area: No History of Present Illness HPI 42-year-old male with history of diabetes, poorly controlled, gastritis, esophagitis, gastroparesis, multiple visits for nausea vomiting, presents emergency department for evaluation of some epigastric discomfort. Patient states approximately 4 hours ago he threw up a chunk of what he thought was tissue from his stomach. He put it in the freezer and then went to [employer] and had a fish sandwich. He tells me he was only able to have a couple of bites of the fish sandwich and came home and felt nauseous still. He decided to contact [facility] to bring him in for evaluation. He brings the trunk with him. He does tell me that 2 days ago he had a large piece of steak that was difficult to swallow and was approximately 2" x 2" in size. He wonders if this may be what he vomited. He denies any hematemesis. He denies any bowel or bladder changes. He has no recent illnesses, fever, or chills. Patient states he "just wanted to be sure he was okay." PFSH Past Medical History Hx Anticoagulant Therapy: No Arthritis: No Asthma: Yes (COMES AND GOES) Autoimmune Disease: No Bipolar Disorder: Yes Anxiety: Yes Depression: Yes Heart Rhythm Problems: No Cancer: No Cardiovascular Problems: No High Cholesterol: No Chemotherapy: No Chest Pain: No Congestive Heart Failure: No COPD: No Cerebrovascular Accident: No Diabetes: Yes Patient Takes Glucophage: No Diminished Hearing: No Endocrine: Yes (pancreatitis) Gastrointestinal Disorders: Yes (HX OF ULCERS) GERD: Yes Genitourinary: No Headaches: No Hiatal Hernia: No Heparin Induced Thrombocytopen: No Hypertension: No Immune Disorder: No Implanted Vascular Access Dvce: No Kidney Stones: No Musculoskeletal: No Neurologic: Yes Psychiatric: Yes (dyslexia) Reproductive: No Respiratory: No Migraines: No Pancreatitis: Yes Radiation Therapy: No Renal Failure: No Seizures: Yes Sickle Cell Disease: No Sleep Apnea: No Ulcer: Yes Past Surgical History Abdominal Surgery: No AICD: No Arteriovenous Shunt: No Cardiac Surgery: No Ear Surgery: No Endocrine Surgery: No Eye Surgery: No Genitourinary Surgery: No Gynecologic Surgery: No Hysterectomy: No Insulin Pump: No Joint Replacement: No Neurologic Surgery: No Pacemaker: No Thoracic Surgery: No Other Surgery: No Social History Alcohol Use: No (RARE) Tobacco Use: No Substance Use: Yes (WEED ONCE IN A WHILE ) Allergies-Medications (Allergen,Severity, Reaction): Coded Allergies: Pork/Porcine Containing Products (Verified Allergy, Severe, ALLERGIC TO PORK INSULIN ONLY, 03/26/18) insulin aspart (Verified Allergy, Severe, ITCHING, RASH TO PORK INSULIN ONLY, 03/26/18) insulin aspart protamine human (Verified Allergy, Severe, ITCHING, RASH TO PORK INSULIN ONLY, 03/26/18) insulin detemir (Verified Allergy, Severe, ITCHING, RASH TO PORK INSULIN ONLY, 03/26/18) insulin glargine (Verified Allergy, Severe, ITCHING, RASH TO PORK INSULIN ONLY, 03/26/18) insulin isophane (NPH) (Verified Allergy, Severe, ITCHING, RASH TO PORK INSULIN ONLY, 03/26/18) insulin lispro (Verified Allergy, Severe, ITCHING, RASH TO PORK INSULIN ONLY, 03/26/18) insulin regular (Verified Allergy, Severe, ITCHING, RASH TO PORK INSULIN ONLY, 03/26/18) penicillin G (Verified Allergy, Severe, HIVES, 03/26/18) Reported Meds & Prescriptions Reported Meds & Active Scripts Active Zofran Odt (Ondansetron Odt) 4 Mg Tab 4 Mg SL Q6HR PRN Metformin (Metformin HCl) 500 Mg Tab 500 Mg PO BIDPC Novolog Inj (Insulin Aspart) 1,000 Unit/10 Ml Vial 1-9 Units SQ ACHS Max dose at bedtime:( )units; sugars less than 70,(0)units; sugars 150-199,(1) unit; sugars 200-249,(3) units; sugars 250-299,(5) units; sugars 300-349,(7) units; sugars greater than 349,(9) units Levemir Inj (Insulin Detemir) 1,000 unit/ 10 ML Vial 12 Units SQ HS 30 Days Do not mix with any other Insulin. Reported Trazodone (Trazodone HCl) 50 Mg Tab 50 Mg PO HS Seroquel (Quetiapine Fumarate) 50 Mg Tab 50 Mg PO HS Keppra (Levetiracetam) 750 Mg Tab 750 Mg PO DAILY Review of Systems Except as stated in HPI: all other systems reviewed are Neg Physical Exam Narrative GENERAL: Well-nourished male patient, no acute distress. SKIN: Focused skin assessment warm/dry. HEAD: Atraumatic. Normocephalic. EYES: Pupils equal and round. No scleral icterus. No injection or drainage. ENT: No nasal bleeding or discharge. Mucous membranes pink and moist. NECK: Trachea midline. No JVD. CARDIOVASCULAR: Elevated rate and rhythm. No murmur appreciated. RESPIRATORY: No accessory muscle use. Clear to auscultation. Breath sounds equal bilaterally. GASTROINTESTINAL: Abdomen soft, nondistended. Epigastric tenderness to palpation. Mild no guarding. No rebound tenderness. hepatic and splenic margins not palpable. MUSCULOSKELETAL: No obvious deformities. No clubbing. No cyanosis. No edema. NEUROLOGICAL: Awake and alert. No obvious cranial nerve deficits. Motor grossly within normal limits. Normal speech. Data Data Last Documented VS Vital Signs Date Time Temp Pulse Resp B/P (MAP) Pulse Ox O2 Delivery O2 Flow Rate FiO2 03/26/18 21:43 98 Room Air 03/26/18 21:41 98.2 101 18 143/93 (110) Orders Orders Complete Blood Count With Diff (03/26/18 21:39) Comprehensive Metabolic Panel (03/26/18 21:39) Lipase (03/26/18 21:39) Iv Access Insert/Monitor (03/26/18 21:39) Ecg Monitoring (03/26/18 21:39) Oximetry (03/26/18 21:39) Sodium Chlor 0.9% 1000 Ml Inj (Ns 1000 M (03/26/18 21:39) Sodium Chloride 0.9% Flush (Ns Flush) (03/26/18 21:45) Ed Discharge Order (03/26/18 22:49) Labs Laboratory Tests Test 03/26/18 22:00 White Blood Count 10.3 TH/MM3 Red Blood Count 5.60 MIL/MM3 Hemoglobin 16.6 GM/DL Hematocrit 48.9 % Mean Corpuscular Volume 87.3 FL Mean Corpuscular Hemoglobin 29.6 PG Mean Corpuscular Hemoglobin Concent 33.9 % Red Cell Distribution Width 13.8 % Platelet Count 348 TH/MM3 Mean Platelet Volume 8.0 FL Neutrophils (%) (Auto) 68.4 % Lymphocytes (%) (Auto) 22.0 % Monocytes (%) (Auto) 8.1 % Eosinophils (%) (Auto) 0.8 % Basophils (%) (Auto) 0.7 % Neutrophils # (Auto) 7.1 TH/MM3 Lymphocytes # (Auto) 2.3 TH/MM3 Monocytes # (Auto) 0.8 TH/MM3 Eosinophils # (Auto) 0.1 TH/MM3 Basophils # (Auto) 0.1 TH/MM3 CBC Comment DIFF FINAL Differential Comment Blood Urea Nitrogen 12 MG/DL Creatinine 1.27 MG/DL Random Glucose 372 MG/DL Total Protein 7.7 GM/DL Albumin 4.4 GM/DL Calcium Level 9.0 MG/DL Alkaline Phosphatase 113 U/L Aspartate Amino Transf (AST/SGOT) 17 U/L Alanine Aminotransferase (ALT/SGPT) 19 U/L Total Bilirubin 0.5 MG/DL Sodium Level 135 MEQ/L Potassium Level 3.7 MEQ/L Chloride Level 96 MEQ/L Carbon Dioxide Level 25.2 MEQ/L Anion Gap 14 MEQ/L Estimat Glomerular Filtration Rate 62 ML/MIN Lipase 349 U/L [facility] Medical Decision Making Medical Screen Exam Complete: Yes Emergency Medical Condition: Yes Medical Record Reviewed: Yes Differential Diagnosis Gastritis versus electrolyte abnormality versus peptic ulcer disease versus pancreatitis Narrative Course 42-year-old male presents emergency department for evaluation of nausea, epigastric discomfort after he vomited a large piece of what he thought may be tissue or the large pieces states that he ate 2 days ago. Patient appears well. He was able to go to [employer] and eat some of a fish sandwich prior to coming home and still feeling nauseous at which time he decided to come in for evaluation. Patient has history of uncontrolled diabetes. Basic lab work is ordered and IV fluids are initiated. Laboratory Tests Test 03/26/18 22:00 White Blood Count 10.3 TH/MM3 Red Blood Count 5.60 MIL/MM3 Hemoglobin 16.6 GM/DL Hematocrit 48.9 % Mean Corpuscular Volume 87.3 FL Mean Corpuscular Hemoglobin 29.6 PG Mean Corpuscular Hemoglobin Concent 33.9 % Red Cell Distribution Width 13.8 % Platelet Count 348 TH/MM3 Mean Platelet Volume 8.0 FL Neutrophils (%) (Auto) 68.4 % Lymphocytes (%) (Auto) 22.0 % Monocytes (%) (Auto) 8.1 % Eosinophils (%) (Auto) 0.8 % Basophils (%) (Auto) 0.7 % Neutrophils # (Auto) 7.1 TH/MM3 Lymphocytes # (Auto) 2.3 TH/MM3 Monocytes # (Auto) 0.8 TH/MM3 Eosinophils # (Auto) 0.1 TH/MM3 Basophils # (Auto) 0.1 TH/MM3 CBC Comment DIFF FINAL Differential Comment Blood Urea Nitrogen 12 MG/DL Creatinine 1.27 MG/DL Random Glucose 372 MG/DL Total Protein 7.7 GM/DL Albumin 4.4 GM/DL Calcium Level 9.0 MG/DL Alkaline Phosphatase 113 U/L Aspartate Amino Transf (AST/SGOT) 17 U/L Alanine Aminotransferase (ALT/SGPT) 19 U/L Total Bilirubin 0.5 MG/DL Sodium Level 135 MEQ/L Potassium Level 3.7 MEQ/L Chloride Level 96 MEQ/L Carbon Dioxide Level 25.2 MEQ/L Anion Gap 14 MEQ/L Estimat Glomerular Filtration Rate 62 ML/MIN Lipase 349 U/L Lab work is reviewed. Patient is hyperglycemic however his labs are consistent with previous lab work. Patient will be discharged home to follow-up with primary care provider. He agrees to return immediately with acute worsening of symptoms. Diagnosis Primary Impression: Uncontrolled diabetes mellitus Qualified Codes: E11.8 - Type 2 diabetes mellitus with unspecified complications; E11.65 - Type 2 diabetes mellitus with hyperglycemia Additional Impression: Nausea & vomiting Qualified Codes: R11.2 - Nausea with vomiting, unspecified Referrals: [employer] Primary Care Physician Additional Instructions: It is important that you cut up your food into small pieces prior to eating them Follow-up with a primary care provider Seek your gastroenterology evaluation Return immediately with acute worsening of symptoms Disposition: 01 DISCHARGE HOME Condition: Stable Maura Carbajal FANG March 26, 2018 22:10
[2018-03-26 22:41] LABS: AUTOMATED NEUTROPHIL # 7.1 TH/MM3 (1.8-7.7); BASOPHIL # 0.1 TH/MM3 (0-0.2); BASOPHIL % 0.7 % (0.0-2.0); EOSINOPHIL # 0.1 TH/MM3 (0-0.4); EOSINOPHIL % 0.8 % (0.0-4.0); HEMATOCRIT 48.9 % (39.0-51.0); HEMOGLOBIN 16.6 GM/DL (13.0-17.0); LYMPHOCYTE # 2.3 TH/MM3 (1.0-4.8); MEAN CELL VOLUME 87.3 FL (80.0-100.0); MEAN CORPUSCULAR HEMOGLOBIN 29.6 PG (27.0-34.0); MEAN CORPUSCULAR HGB CONC 33.9 % (32.0-36.0); MONO % 8.1 % (0.0-8.0); MONOCYTE # 0.8 TH/MM3 (0-0.9); NEUT % 68.4 % (16.0-70.0); PLATELET COUNT 348 TH/MM3 (150-450); RED CELL DISTRIBUTION WIDTH 13.8 % (11.6-17.2); WHITE BLOOD COUNT 10.3 TH/MM3 (4.0-11.0)
[2018-03-26 22:45] LABS: ALBUMIN 4.4 GM/DL (3.4-5.0); ALT (GPT) 19 U/L (12-78); AST (GOT) 17 U/L (15-37); BICARBONATE 25.2 MEQ/L (21.0-32.0); BLOOD UREA NITROGEN 12 MG/DL (7-18); CHLORIDE 96 MEQ/L (98-107); CREATININE 1.27 MG/DL (0.60-1.30); GLOMERULAR FILTRATION RATE 62 ML/MIN (>89); GLUCOSE,RANDOM 372 MG/DL (74-106); SODIUM (NA) 135 MEQ/L (136-145)
[2018-03-26 22:47] LABS: ALKALINE PHOSPHATASE 113 U/L (45-117); TOTAL BILIRUBIN ADULT 0.5 MG/DL (0.2-1.0); TOTAL PROTEIN 7.7 GM/DL (6.4-8.2)
== END 2018-03-26 23:08 | disposition home or self-care (01) ==
LOC: NEPE 21:16
DX: E11.65 Type 2 diabetes mellitus with hyperglycemia (principal); E11.43 Type 2 diabetes mellitus with diabetic autonomic (poly)neuropathy; K31.84 Gastroparesis; F31.9 Bipolar disorder, unspecified; F12.90 Cannabis use, unspecified, uncomplicated; Z79.4 Long term (current) use of insulin
CPT/HCPCS: 80053; 83690; 85025; 96360; 99284; J7030

== ENCOUNTER 2018-04-12 16:55 | Emergency (ER) | payer MEDICAID ==
[~2018-04-12] VITALS: Ht 175.3 cm; Wt 78.0 kg
[2018-04-12 17:00] VITALS: BP 133/78; PULSE 123; RESP 18; TEMP 98; O2SAT 97
[2018-04-12 17:51] LABS: BILIRUBIN, URINE NEG (NEG); BLOOD, URINE NEG (NEG); GLUCOSE,URINE >=500 mg/dL (NEG); HYALINE CAST, URINE 4 /lpf (RARE); KETONE, URINE 80 OR GREATER mg/dL (NEG); NITRITE,URINE NEG (NEG); URINE COLOR YELLOW (YELLW/STRAW); URINE LEUKOCYTE ESTERASE NEG (NEG)
[2018-04-12] MEDS ORDERED: MORPHINE SULFATE 4 MG/ML INJ IV PUSH ONE (20:15)
[2018-04-12] MEDS ORDERED: ONDANSETRON ODT 4 MG TAB PO ONE (20:15)
[2018-04-12] MEDS ORDERED: SODIUM CHLOR 0.9% 1000 ML INJ 1,000 ML IV ONE (20:15)
[2018-04-12] MEDS ORDERED: KETOROLAC TROMETHAMINE 30 MG/ML (IVP) VIAL IV PUSH ONE (20:15)
[2018-04-12] MEDS ORDERED: SODIUM CHLORIDE 0.9% FLUSH 10 ML FLUSH IVF PRN (20:15)
--- NOTE | 2018-04-12 20:20 | PD ---
HPI Chief Complaint: Flank/Kidney Pain Time Seen by Provider: 20:12 Travel History International Travel<30 days: No Contact w/Intl Traveler<30days: No Traveled to known affect area: No History of Present Illness HPI 42-year-old male with history of diabetes presents for evaluation of abdominal/ left flank pain. Symptoms started earlier today. The pain is a sharp pain that seems to radiate from the left flank down to the left lower quadrant. Pain comes and goes in waves. No obvious aggravating or relieving factors. He denies nausea, vomiting, diarrhea, constipation, dysuria, testicular scrotal pain, fevers or chills. He reports that earlier today when he was urinating was brown/red tinged but the last time that he urinated in order to make sample here it was yellow. No history of kidney stones. No other complaints at this time. PFSH Past Medical History Hx Anticoagulant Therapy: No Arthritis: No Asthma: Yes (COMES AND GOES) Autoimmune Disease: No Bipolar Disorder: Yes Anxiety: Yes Depression: Yes Heart Rhythm Problems: No Cancer: No Cardiovascular Problems: No High Cholesterol: No Chemotherapy: No Chest Pain: No Congestive Heart Failure: No COPD: No Cerebrovascular Accident: No Diabetes: Yes Diminished Hearing: No Endocrine: Yes (pancreatitis) Gastrointestinal Disorders: Yes (HX OF ULCERS) GERD: Yes Genitourinary: No Headaches: No Hiatal Hernia: No Heparin Induced Thrombocytopen: No Hypertension: No Immune Disorder: No Implanted Vascular Access Dvce: No Kidney Stones: No Musculoskeletal: No Neurologic: Yes Psychiatric: Yes (dyslexia) Reproductive: No Respiratory: No Migraines: No Pancreatitis: Yes Radiation Therapy: No Renal Failure: No Seizures: Yes Sickle Cell Disease: No Sleep Apnea: No Ulcer: Yes Past Surgical History Abdominal Surgery: No AICD: No Arteriovenous Shunt: No Cardiac Surgery: No Ear Surgery: No Endocrine Surgery: No Eye Surgery: No Genitourinary Surgery: No Gynecologic Surgery: No Hysterectomy: No Insulin Pump: No Joint Replacement: No Neurologic Surgery: No Pacemaker: No Thoracic Surgery: No Other Surgery: No Social History Alcohol Use: No (RARE) Tobacco Use: No Substance Use: Yes (WEED ONCE IN A WHILE ) Allergies-Medications (Allergen,Severity, Reaction): Coded Allergies: Pork/Porcine Containing Products (Verified Allergy, Severe, ALLERGIC TO PORK INSULIN ONLY, 04/12/18) insulin aspart (Verified Allergy, Severe, ITCHING, RASH TO PORK INSULIN ONLY, 04/12/18) insulin aspart protamine human (Verified Allergy, Severe, ITCHING, RASH TO PORK INSULIN ONLY, 04/12/18) insulin detemir (Verified Allergy, Severe, ITCHING, RASH TO PORK INSULIN ONLY, 04/12/18) insulin glargine (Verified Allergy, Severe, ITCHING, RASH TO PORK INSULIN ONLY, 04/12/18) insulin isophane (NPH) (Verified Allergy, Severe, ITCHING, RASH TO PORK INSULIN ONLY, 04/12/18) insulin lispro (Verified Allergy, Severe, ITCHING, RASH TO PORK INSULIN ONLY, 04/12/18) insulin regular (Verified Allergy, Severe, ITCHING, RASH TO PORK INSULIN ONLY, 04/12/18) penicillin G (Verified Allergy, Severe, HIVES, 04/12/18) Reported Meds & Prescriptions Reported Meds & Active Scripts Active Bactrim DS (Sulfamethoxazole-Trimethoprim) 800-160 Mg Tab 1 Tab PO BID 14 Days Zofran Odt (Ondansetron Odt) 4 Mg Tab 4 Mg SL Q6HR PRN Metformin (Metformin HCl) 500 Mg Tab 500 Mg PO BIDPC Novolog Inj (Insulin Aspart) 1,000 Unit/10 Ml Vial 1-9 Units SQ ACHS Max dose at bedtime:( )units; sugars less than 70,(0)units; sugars 150-199,(1) unit; sugars 200-249,(3) units; sugars 250-299,(5) units; sugars 300-349,(7) units; sugars greater than 349,(9) units Levemir Inj (Insulin Detemir) 1,000 unit/ 10 ML Vial 12 Units SQ HS 30 Days Do not mix with any other Insulin. Reported Trazodone (Trazodone HCl) 50 Mg Tab 50 Mg PO HS Seroquel (Quetiapine Fumarate) 50 Mg Tab 50 Mg PO HS Keppra (Levetiracetam) 750 Mg Tab 750 Mg PO DAILY Review of Systems Except as stated in HPI: all other systems reviewed are Neg Physical Exam Narrative GENERAL: Well-developed well-nourished male who appears uncomfortable on initial examination. SKIN: Warm and dry. HEAD: Atraumatic. Normocephalic. EYES: Pupils equal and round. No scleral icterus. No injection or drainage. ENT: No nasal bleeding or discharge. Mucous membranes pink and moist. NECK: Trachea midline. No JVD. CARDIOVASCULAR: Regular rate and rhythm. No murmur appreciated. RESPIRATORY: No accessory muscle use. Clear to auscultation. Breath sounds equal bilaterally. GASTROINTESTINAL: Abdomen soft, left lower quadrant tenderness without guarding. Left CVA tenderness is present. examination reveals descended testicles which are nontender. MUSCULOSKELETAL: No obvious deformities. No clubbing. No cyanosis. No edema. NEUROLOGICAL: Awake and alert. No obvious cranial nerve deficits. Motor grossly within normal limits. Normal speech. Data Data Last Documented VS Vital Signs Date Time Temp Pulse Resp B/P (MAP) Pulse Ox O2 Delivery O2 Flow Rate FiO2 04/12/18 20:40 106 18 113/74 (87) 98 Room Air 04/12/18 17:00 98.0 Orders Orders Urinalysis - C+S If Indicated (04/12/18 16:59) Complete Blood Count With Diff (04/12/18 20:15) Comprehensive Metabolic Panel (04/12/18 20:15) Ct Abd/Pel W/O Iv Contrast (04/12/18 20:15) Ecg Monitoring (04/12/18 20:15) Iv Access Insert/Monitor (04/12/18 20:15) Ketorolac Inj (Toradol Inj) (04/12/18 20:15) Morphine Inj (Morphine Inj) (04/12/18 20:15) Sodium Chloride 0.9% Flush (Ns Flush) (04/12/18 20:15) Sodium Chlor 0.9% 1000 Ml Inj (Ns 1000 M (04/12/18 20:15) Creatine Kinase (Cpk) (04/12/18 20:15) Beta Hydroxybutyrate (Acetone) (04/12/18 20:15) Lipase (04/12/18 20:15) Ondansetron Odt (Zofran Odt) (04/12/18 20:15) Gc And Chlamydia Pcr (04/12/18 21:27) Azithromycin Powd Pack (Zithromax Powd P (04/12/18 21:30) Ceftriaxone Inj (Rocephin Inj) (04/12/18 21:30) Lidocaine 1% Inj (50 Ml) (Xylocaine 1% I (04/12/18 21:30) Levofloxacin (Levaquin) (04/12/18 22:00) Ed Discharge Order (04/12/18 21:58) Sulfamet-Trimeth Ds 800-160 Mg (Bactrim (04/12/18 22:00) Sodium Chlor 0.9% 1000 Ml Inj (Ns 1000 M (04/12/18 22:00) Labs Laboratory Tests Test 04/12/18 17:05 04/12/18 20:40 Urine Color YELLOW Urine Turbidity CLEAR Urine pH 5.0 Urine Specific [place] 1.027 Urine Protein NEG mg/dL Urine Glucose (UA) >=500 mg/dL Urine Ketones 80 OR GREATER mg/dL Urine Occult Blood NEG Urine Nitrite NEG Urine Bilirubin NEG Urine Urobilinogen LESS THAN 2 mg/dL Urine Leukocyte Esterase NEG Urine WBC LESS THAN 1 /hpf Urine Hyaline Casts 4 /lpf Urine Granular Casts 9 /lpf Microscopic Urinalysis Comment CULT NOT INDICATED White Blood Count 12.2 TH/MM3 Red Blood Count 5.76 MIL/MM3 Hemoglobin 16.7 GM/DL Hematocrit 50.9 % Mean Corpuscular Volume 88.3 FL Mean Corpuscular Hemoglobin 29.0 PG Mean Corpuscular Hemoglobin Concent 32.9 % Red Cell Distribution Width 14.0 % Platelet Count 384 TH/MM3 Mean Platelet Volume 7.8 FL Neutrophils (%) (Auto) 70.3 % Lymphocytes (%) (Auto) 22.3 % Monocytes (%) (Auto) 6.6 % Eosinophils (%) (Auto) 0.5 % Basophils (%) (Auto) 0.3 % Neutrophils # (Auto) 8.6 TH/MM3 Lymphocytes # (Auto) 2.7 TH/MM3 Monocytes # (Auto) 0.8 TH/MM3 Eosinophils # (Auto) 0.1 TH/MM3 Basophils # (Auto) 0.0 TH/MM3 CBC Comment DIFF FINAL Differential Comment Blood Urea Nitrogen 13 MG/DL Creatinine 1.19 MG/DL Random Glucose 306 MG/DL Total Protein 7.4 GM/DL Albumin 3.8 GM/DL Calcium Level 9.1 MG/DL Alkaline Phosphatase 107 U/L Aspartate Amino Transf (AST/SGOT) 24 U/L Alanine Aminotransferase (ALT/SGPT) 19 U/L Total Bilirubin 0.5 MG/DL Sodium Level 134 MEQ/L Potassium Level 5.0 MEQ/L Chloride Level 101 MEQ/L Carbon Dioxide Level 18.1 MEQ/L Anion Gap 15 MEQ/L Estimat Glomerular Filtration Rate 67 ML/MIN Total Creatine Kinase 101 U/L Lipase 71 U/L B-Hydroxybutyrate 2.74 MMOL/L [facility] Medical Decision Making Medical Screen Exam Complete: Yes Emergency Medical Condition: Yes Medical Record Reviewed: Yes Differential Diagnosis Ureteral stone, hydronephrosis, pyelonephritis, diverticulitis, cystitis Narrative Course Lab work, urinalysis, CT abdomen and pelvis ordered. The patient will be given IV fluids, Toradol, morphine, oral Zofran. CT abdomen pelvis reveals mildly distended bladder otherwise unremarkable. CBC reveals WBC count of 12.4, glucose is 306, beta hydroxybutyrate is elevated at 2.74, anion gap is normal. Urinalysis reveals 80 ketones. Patient does have mildly distended bladder on CT of the pelvis, rectal examination was performed. He had mild prostate tenderness to palpation. Therefore he will be treated for possible early prostatitis with Bactrim, first dose provided here. Chlamydia gonorrhea probe are pending at the time of discharge and he was given Rocephin and azithromycin. Upon reexamination he feels improved. Discussed signs and symptoms that would warrant returning to the emergency room. Diagnosis Primary Impression: Abdominal pain Additional Impression: Hyperglycemia Additional Instructions: Medication as prescribed, stay well-hydrated and well-nourished, take Tylenol Motrin for pain per dosing instructions on the bottle. Follow-up with primary care physician and return for any acutely new or worsening symptoms. Med/Other Pt SpecificInfo: Prescription(s) given Scripts Sulfamethoxazole-Trimethoprim (Bactrim DS) 800-160 Mg Tab 1 TAB PO BID for Infection for 14 Days, #28 TAB 0 Refills Prov: Lucille Rodriguez 04/12/18 Disposition: 01 DISCHARGE HOME Condition: Stable Kirk Negron Apr 12, 2018 20:20
[2018-04-12 20:40] VITALS: BP 113/74; PULSE 106; RESP 18; O2SAT 98
[2018-04-12 21:12] LABS: AUTOMATED NEUTROPHIL # 8.6 TH/MM3 (1.8-7.7); BASOPHIL % 0.3 % (0.0-2.0); EOSINOPHIL # 0.1 TH/MM3 (0-0.4); EOSINOPHIL % 0.5 % (0.0-4.0); HEMATOCRIT 50.9 % (39.0-51.0); HEMOGLOBIN 16.7 GM/DL (13.0-17.0); LYMPH % 22.3 % (9.0-44.0); LYMPHOCYTE # 2.7 TH/MM3 (1.0-4.8); MEAN CELL VOLUME 88.3 FL (80.0-100.0); MEAN CORPUSCULAR HGB CONC 32.9 % (32.0-36.0); MEAN PLATELET VOLUME 7.8 FL (7.0-11.0); MONO % 6.6 % (0.0-8.0); MONOCYTE # 0.8 TH/MM3 (0-0.9); NEUT % 70.3 % (16.0-70.0); PLATELET COUNT 384 TH/MM3 (150-450); RED BLOOD COUNT 5.76 MIL/MM3 (4.50-5.90); WHITE BLOOD COUNT 12.2 TH/MM3 (4.0-11.0)
--- NOTE | 2018-04-12 21:16 | RADRPT ---
EXAM DATE: 04/12/2018 9:06 PM EDT AGE/SEX: 42 years / Male INDICATIONS: Left flank and groin pain. CLINICAL DATA: This is the patient's initial encounter. Patient reports that signs and symptoms have been present for 1 week and indicates a pain score of 10/10. MEDICAL/SURGICAL HISTORY: Diabetes mellitus type II. . RADIATION DOSE: 11.42 CTDI (mGy) COMPARISON: [facility] – [place], [place] ABDOMEN & PELVIS W/O CONTRAST, 11/11/2017. . TECHNIQUE: Multiple contiguous axial images were obtained through the abdomen. Images were obtained using multiple row detector helical technique. Using dose reduction techniques, radiation dose was ke pt as low as reasonably achievable to obtain optimal diagnostic quality images. FINDINGS: No acute findings in the liver, spleen, adrenals, kidneys or pancreas. No calcified gallstones. There is mild constipation. No inguinal hernia. The bladder is distended. No acute bony abnormalities. CONCLUSION: 1. No acute findings on abdomen and pelvic CT. Specifically no renal calculi or obstructive uropathy . Distended bladder. Electronically signed by: Esteban Lee MD 04/12/2018 9:15 PM EDT
[2018-04-12] MEDS ORDERED: LIDOCAINE HCL 1% 50 ML VIAL XX ONE (21:30)
[2018-04-12] MEDS ORDERED: AZITHROMYCIN PWD FOR SUSP 1 GM PACKET PO ONE (21:30)
[2018-04-12] MEDS ORDERED: cefTRIAXone 250 MG VIAL IM ONE (21:30)
[2018-04-12 21:54] LABS: ALBUMIN 3.8 GM/DL (3.4-5.0); ALKALINE PHOSPHATASE 107 U/L (45-117); ALT (GPT) 19 U/L (12-78); AST (GOT) 24 U/L (15-37); BICARBONATE 18.1 MEQ/L (21.0-32.0); BLOOD UREA NITROGEN 13 MG/DL (7-18); CALCIUM 9.1 MG/DL (8.5-10.1); CHLORIDE 101 MEQ/L (98-107); CREATININE 1.19 MG/DL (0.60-1.30); GLOMERULAR FILTRATION RATE 67 ML/MIN (>89); GLUCOSE,RANDOM 306 MG/DL (74-106); SODIUM (NA) 134 MEQ/L (136-145); TOTAL BILIRUBIN ADULT 0.5 MG/DL (0.2-1.0); TOTAL PROTEIN 7.4 GM/DL (6.4-8.2)
[2018-04-12] MEDS ORDERED: BACT800T5 PO (21:59)
[2018-04-12] MEDS ORDERED: LEVOFLOXACIN 500 MG TAB PO ONE (22:00)
[2018-04-12] MEDS ORDERED: SULFAMETHOXAZOLE-TRIMETHOPRIM DS 800-160 MG TAB PO ONE (22:00)
[2018-04-12] MEDS ORDERED: SODIUM CHLOR 0.9% 1000 ML INJ 1,000 ML IV SCH (22:00)
== END 2018-04-12 23:41 | disposition home or self-care (01) ==
LOC: NEPD 16:55
DX: R10.32 Left lower quadrant pain (principal); E11.65 Type 2 diabetes mellitus with hyperglycemia; F31.9 Bipolar disorder, unspecified; Z79.4 Long term (current) use of insulin; Z79.899 Other long term (current) drug therapy
CPT/HCPCS: 74176; 80053; 81001; 82010; 82550; 83690; 85025; 87491; 87591; 96361; 96372; 96374; 96375; 99284; J0696; J1885; J2270; J7030

== ENCOUNTER 2018-08-04 22:13 | Inpatient (IN) ==
[2018-08-04] MEDS ORDERED: Dextrose 50% in Water 50 ML Vial IV.PUSH PRN (22:57)
[2018-08-04] MEDS ORDERED: Sod Chloride 0.9% Inj 1,000 ML IV.SIG ONE ×2 (22:57→23:37)
--- NOTE | 2018-08-04 22:57 | ED ---
HPI General Chief complaint: Diabetic Stated complaint: nausea/vomiting Time Seen by Provider: 08/04/18 22:31 Source: patient Limitations: no limitations History of Present Illness HPI narrative: The patient is a 42 year old male who presents to the [facility] emergency department with a history of nausea and vomiting that began 3 days ago. He has vomited too many times to count. He denies having any diarrhea. He has Diabetes Mellitus. He has been too weak to give himself any insulin. He began to have chest pain and shortness of breath yesterday. He has abdominal pain that has been present for the last 3 days. It is in the upper abdomen. The patient additionally reports having urinary frequency and dysuria. He reports that he has had dysuria for weeks and had this evaluated in the past without any specific diagnosis. He denies having any penile discharge, testicle pain or swelling. On review of systems otherwise, patient denies having any known recent fevers, cough, congestion, neck pain, or neurologic symptoms. Related Data Home Medications Medication Instructions Recorded Confirmed benztropine 1 mg PO DAILY 08/04/18 08/04/18 desmopressin 0.1 mg PO HS 08/04/18 08/04/18 fluoxetine 60 mg PO DAILY 08/04/18 08/04/18 gabapentin 300 mg PO TID 08/04/18 08/04/18 insulin NPH and regular human 60 unit SUBCUT DAILY 08/04/18 08/04/18 [Novolin 70/30 U-100 Insulin] levetiracetam 500 mg PO BID 08/04/18 08/04/18 lithium carbonate 300 mg PO BID 08/04/18 08/04/18 ondansetron HCl [Zofran] 4 mg PO QID PRN 08/04/18 08/04/18 pantoprazole 40 mg PO DAILY 08/04/18 08/04/18 quetiapine [Seroquel XR] 400 mg PO DAILY 08/04/18 08/04/18 Allergies Allergy/AdvReac Type Severity Reaction Status Date / Time penicillin G Allergy Severe HIVES Verified 04/12/18 20:47 Pork/Porcine Containing Allergy Severe ALLERGIC Verified 04/12/18 20:47 Products TO PORK INSULIN ONLY Review of Systems ROS: all other systems reviewed are negative [facility] Medical History Medical History Bipolar 1 disorder (Acute) Depression (Acute) Diabetes (Acute) GERD (gastroesophageal reflux disease) (Acute) Neuropathy (Acute) Pancreatitis (Acute) Surgical History Surgical History No history of previous surgery (Acute) Social History Social History Substance History: No History of Abuse Second Hand Smoke Exposure: No Smoking Status: Never smoker How Often Do You Have a Drink Containing Alcohol: Never Recent Travel in [facility] within the Last 8 Weeks: No Recent Out of Country Travel within the Last 8 Weeks: No Immunization History Tetanus Immunization: >5 Years Exam Const General: cooperative, well developed and acute distress (Related to intermittent vomiting.) mild Nutritional Appearance: well nourished Orientation: alert, awake and oriented x3 HENMT Head: normocephalic and atraumatic Nose: no nasal discharge and no epistaxis Mouth: other (Tacky mucous membranes.) Eyes Sclera: normal sclerae Pupils: PERRL Neck Neck: trachea midline and no JVD Resp Effort & Inspection: no use of accessory muscles Auscultation: clear to auscultation bilaterally Cardio Rate: tachycardic (Sinus tachycardia in the low 100s. No pulse deficits to the extremities on simultaneous auscultation and palpation of his radial artery.) Rhythm: regular rhythm Heart Sounds: no murmurs GI Inspection: non-distended Palpation: soft, no hepatosplenomegaly, no guarding, not rigid and tender in the epigastrum, in the LLQ, in the RLQ, in the LUQ and in the RUQ Auscultation: hypoactive bowel sounds Skin General: dry skin (warm) Neuro General: alert, awake, oriented x3 and other (Grossly nonfocal.) Speech: speech normal Motor: no movement abnormalities noted Extrem General: normal to inspection, no clubbing, no cyanosis and no edema Psych Mood: congruent mood Affect: normal affect Judgment: judgment good Course Reevaluation(s) Reevaluation #1: The patient continued to have nausea and vomiting and was given additional doses of antiemetic. The patient was continued on normal saline IV fluids. Consultations Consultation #1: The patient's case including history, pertinent physical examination findings, and laboratory studies were discussed with Dr. Melendez. It was agreed that the patient would be admitted to the hospitalist service. Initial Documented Vital Signs Temperature 98.4 F 08/04/18 22:18 Pulse Rate 106 H 08/04/18 22:18 Respiratory Rate 22 08/04/18 22:18 Blood Pressure 165/105 H 08/04/18 22:18 Pulse Oximetry 98 08/04/18 22:18 Last Documented Vital Signs Temperature 98.4 F 08/05/18 16:22 Pulse Rate 90 08/05/18 16:22 Respiratory Rate 20 08/05/18 16:22 Blood Pressure 142/94 H 08/05/18 16:22 Pulse Oximetry 98 08/05/18 16:22 Medical Decision Making MDM Narrative Medical decision making narrative: During the course of the patient's emergency department visit, the patient's history, examination, and differential diagnosis were reviewed with the patient. The patient was placed on a mineralogy professor with oximetry and frequent blood pressure monitoring. The patient had IV access obtained and blood work sent for analysis. A diagnostic evaluation was started regarding the patient's nausea and vomiting. A VBG was ordered to evaluate for possible underlying DKA. The patient was initially provided normal saline 2 L IV fluid bolus. Zofran 4 mg IV. The patient continued to have nausea and was given a repeat dose of Zofran. The patient continued to have nausea and was given Reglan 5 mg IV. The patient's diagnostic studies are remarkable for an elevated white count of 20.1, hemoglobin 17.5 suggestive of dehydration and hemoconcentration, platelets 388 with 84.3 neutrophils, a VBG was done which revealed a pH of 7.59 , PCO2 31, PO2 30, bicarb is 30. No acidosis suggestive of DKA. The patient had regular insulin administered subcutaneously. Chemistries remarkable for a sodium of 132, potassium 3.2, chloride 91, creatinine 1.33, GFR 59, glucose 134 , AST 12, troponin I less than 0.02, total protein 8.4, lipase is elevated at 1040 consistent with acute pancreatitis, beta hydroxybutyrate is 2.47. Urinalysis showed concentrated urine with 80 or greater ketones, no other acute abnormality. A CHEST X- revealed no acute abnormality, CT scan of the abdomen and pelvis showed no acute abnormality. Thickening of the visualized distal esophagus suggested correlation with clinical history for any acute findings which could indicate an esophagitis. The patient's results were discussed with the patient, including the plan of care. I explained that further testing and/ or monitoring is indicated based on the patient's history, examination, and/ or laboratory findings. Therefore, I recommended admission for additional evaluation. The patient expressed understanding and was agreeable with this plan. The patient was admitted to the hospital in guarded condition and sent to a bed under the care of the [facility] service. Medical Screen Exam Complete: Yes Emergency Medical Condition: Yes Differential Diagnosis Differential Diagnosis: Dehydration, versus DKA, versus electrolyte derangements , versus gastroparesis, versus acute kidney injury Medical Records Medical records reviewed: Yes I reviewed the patient's medical records. Lab Data Lab results reviewed: Yes I reviewed the patient's lab results. Result diagrams: 08/05/18 07:26 08/05/18 08:21 Lab Results 08/04/18 08/04/18 08/04/18 Range/Units 22:21 22:52 22:58 WBC 20.1 H (4.0-11.0) th/mm3 RBC 5.90 (4.50-5.90) mil/mm3 Hgb 17.5 H (13.0-17.0) gm/dL Hct 52.4 H (39.0-51.0) % MCV 88.7 (80.0-100.0) fL MCH 29.6 (27.0-34.0) pg MCHC 33.4 (32.0-36.0) % RDW 14.2 (11.6-17.2) % Plt Count 388 (150-450) th/mm3 MPV 7.9 (7.0-11.0) fL Neut % (Auto) 84.3 H (16.0-70.0) % Lymph % (Auto) 7.8 L (9.0-44.0) % [place] % (Auto) 7.0 (0.0-8.0) % Eos % (Auto) 0.0 (0.0-4.0) % Baso % (Auto) 0.9 (0.0-2.0) % Neut # (Auto) 16.9 H (1.8-7.7) th/mm3 Lymph # (Auto) 1.6 (1.0-4.8) th/mm3 [place] # (Auto) 1.4 H (0.0-0.9) th/mm3 Eos # (Auto) 0.0 (0.0-0.4) th/mm3 Baso # (Auto) 0.2 (0.0-0.2) th/mm3 WBC Differential . Differential Comment Auto diff final Puncture Site Iv Patient Temperature 98.6 VBG pH 7.59 H* (7.360-7.400) VBG pCO2 31 L (44-48) mmHG VBG pO2 30 L (35-40) mmHG VBG HCO3 30 H (22-26) mmol/L VBG O2 Saturation 60 L (70-76) % VBG O2 Content 14.5 (9.0-17.0) Vol % VBG Base Excess 7.8 H (-2-2) mmol/L VBG Carboxyhemoglobin 1.1 (0-4) % VBG Methemoglobin 0.7 (0-2) % Hemoglobin 17.3 H (12.0-16.0) G/DL Inspired O2 21 % Critical Value Yes Sodium (136-145) meq/L Potassium (3.5-5.1) meq/L Chloride (98-107) meq/L Carbon Dioxide (21.0-32.0) meq/L Anion Gap (5-15) meq/L BUN (7-18) mg/dL Creatinine (0.60-1.30) mg/dL Estimated GFR (>89) mL/min POC Glucose 439 H (68-110) mg/dl Random Glucose (74-106) mg/dL Hemoglobin A1c (4.3-6.0) % Calcium (8.5-10.1) mg/dL Magnesium (1.5-2.5) mg/dL Total Bilirubin (0.2-1.0) mg/dL AST (15-37) U/L ALT (12-78) U/L Alkaline Phosphatase (45-117) U/L Troponin I (0.02-0.05) ng/mL Total Protein (6.4-8.2) g/dL Albumin (3.4-5.0) g/dL Lipase (73-393) U/L Beta-Hydroxybutyric Acd (0.00-0.39) mmol/L Urine Color (Yellw/Straw) Urine Clarity (Clear) Urine pH (5.0-8.5) Ur Specific [place] (1.002-1.035) Urine Protein (Neg-Trace) mg/dL Urine Glucose (UA) (Negative) mg/dL Urine Ketones (Negative) mg/dL Urine Occult Blood (Negative) Urine Nitrate (Negative) Urine Bilirubin (Negative) Urine Urobilinogen (Less than 2) mg/dL Ur Leukocyte Esterase (Negative) Urine RBC (0-3) /hpf Urine WBC (0-5) /hpf Micro UA Comment Ur Microscopic Review Urine Culture Comments [place] (0.5-1.5) meq/L 08/04/18 08/04/18 08/04/18 Range/Units 22:58 23:14 23:54 WBC (4.0-11.0) th/mm3 RBC (4.50-5.90) mil/mm3 Hgb (13.0-17.0) gm/dL Hct (39.0-51.0) % MCV (80.0-100.0) fL MCH (27.0-34.0) pg MCHC (32.0-36.0) % RDW (11.6-17.2) % Plt Count (150-450) th/mm3 MPV (7.0-11.0) fL Neut % (Auto) (16.0-70.0) % Lymph % (Auto) (9.0-44.0) % [place] % (Auto) (0.0-8.0) % Eos % (Auto) (0.0-4.0) % Baso % (Auto) (0.0-2.0) % Neut # (Auto) (1.8-7.7) th/mm3 Lymph # (Auto) (1.0-4.8) th/mm3 [place] # (Auto) (0.0-0.9) th/mm3 Eos # (Auto) (0.0-0.4) th/mm3 Baso # (Auto) (0.0-0.2) th/mm3 WBC Differential Differential Comment Puncture Site Patient Temperature VBG pH (7.360-7.400) VBG pCO2 (44-48) mmHG VBG pO2 (35-40) mmHG VBG HCO3 (22-26) mmol/L VBG O2 Saturation (70-76) % VBG O2 Content (9.0-17.0) Vol % VBG Base Excess (-2-2) mmol/L VBG Carboxyhemoglobin (0-4) % VBG Methemoglobin (0-2) % Hemoglobin (12.0-16.0) G/DL Inspired O2 % Critical Value Sodium 132 L (136-145) meq/L Potassium 3.2 L (3.5-5.1) meq/L Chloride 91 L (98-107) meq/L Carbon Dioxide 27.2 (21.0-32.0) meq/L Anion Gap 14 (5-15) meq/L BUN 17 (7-18) mg/dL Creatinine 1.33 H (0.60-1.30) mg/dL Estimated GFR 59 L (>89) mL/min POC Glucose 345 H (68-110) mg/dl Random Glucose 434 H (74-106) mg/dL Hemoglobin A1c (4.3-6.0) % Calcium 9.3 (8.5-10.1) mg/dL Magnesium 2.2 (1.5-2.5) mg/dL Total Bilirubin 0.8 (0.2-1.0) mg/dL AST 12 L (15-37) U/L ALT 21 (12-78) U/L Alkaline Phosphatase 117 (45-117) U/L Troponin I Less than 0.02 L (0.02-0.05) ng/mL Total Protein 8.4 H (6.4-8.2) g/dL Albumin 4.5 (3.4-5.0) g/dL Lipase 1040 H (73-393) U/L Beta-Hydroxybutyric Acd 2.47 H (0.00-0.39) mmol/L Urine Color Straw (Yellw/Straw) Urine Clarity Clear (Clear) Urine pH 6.0 (5.0-8.5) Ur Specific [place] 1.036 H (1.002-1.035) Urine Protein Negative (Neg-Trace) mg/dL Urine Glucose (UA) 500 or greater (Negative) mg/dL Urine Ketones 80 or greater H (Negative) mg/dL Urine Occult Blood Negative (Negative) Urine Nitrate Negative (Negative) Urine Bilirubin Negative (Negative) Urine Urobilinogen Less than 2 (Less than 2) mg/dL Ur Leukocyte Esterase Negative (Negative) Urine RBC Less than 1 (0-3) /hpf Urine WBC Less than 1 (0-5) /hpf Micro UA Comment Culture not ind Ur Microscopic Review Not Reportable Urine Culture Comments Culture not ind [place] (0.5-1.5) meq/L 08/05/18 08/05/18 08/05/18 Range/Units 01:28 07:26 07:26 WBC 23.4 H (4.0-11.0) th/mm3 RBC 5.03 (4.50-5.90) mil/mm3 Hgb 14.9 D (13.0-17.0) gm/dL Hct 45.0 (39.0-51.0) % MCV 89.4 (80.0-100.0) fL MCH 29.5 (27.0-34.0) pg MCHC 33.0 (32.0-36.0) % RDW 14.3 (11.6-17.2) % Plt Count 302 (150-450) th/mm3 MPV 7.6 (7.0-11.0) fL Neut % (Auto) 82.6 H (16.0-70.0) % Lymph % (Auto) 9.6 (9.0-44.0) % [place] % (Auto) 7.0 (0.0-8.0) % Eos % (Auto) 0.1 (0.0-4.0) % Baso % (Auto) 0.7 (0.0-2.0) % Neut # (Auto) 19.4 H (1.8-7.7) th/mm3 Lymph # (Auto) 2.2 (1.0-4.8) th/mm3 [place] # (Auto) 1.6 H (0.0-0.9) th/mm3 Eos # (Auto) 0.0 (0.0-0.4) th/mm3 Baso # (Auto) 0.2 (0.0-0.2) th/mm3 WBC Differential . Differential Comment Auto diff final Puncture Site Patient Temperature VBG pH (7.360-7.400) VBG pCO2 (44-48) mmHG VBG pO2 (35-40) mmHG VBG HCO3 (22-26) mmol/L VBG O2 Saturation (70-76) % VBG O2 Content (9.0-17.0) Vol % VBG Base Excess (-2-2) mmol/L VBG Carboxyhemoglobin (0-4) % VBG Methemoglobin (0-2) % Hemoglobin (12.0-16.0) G/DL Inspired O2 % Critical Value Sodium (136-145) meq/L Potassium (3.5-5.1) meq/L Chloride (98-107) meq/L Carbon Dioxide (21.0-32.0) meq/L Anion Gap (5-15) meq/L BUN (7-18) mg/dL Creatinine (0.60-1.30) mg/dL Estimated GFR (>89) mL/min POC Glucose 309 H (68-110) mg/dl Random Glucose (74-106) mg/dL Hemoglobin A1c 11.3 H (4.3-6.0) % Calcium (8.5-10.1) mg/dL Magnesium (1.5-2.5) mg/dL Total Bilirubin (0.2-1.0) mg/dL AST (15-37) U/L ALT (12-78) U/L Alkaline Phosphatase (45-117) U/L Troponin I (0.02-0.05) ng/mL Total Protein (6.4-8.2) g/dL Albumin (3.4-5.0) g/dL Lipase (73-393) U/L Beta-Hydroxybutyric Acd (0.00-0.39) mmol/L Urine Color (Yellw/Straw) Urine Clarity (Clear) Urine pH (5.0-8.5) Ur Specific [place] (1.002-1.035) Urine Protein (Neg-Trace) mg/dL Urine Glucose (UA) (Negative) mg/dL Urine Ketones (Negative) mg/dL Urine Occult Blood (Negative) Urine Nitrate (Negative) Urine Bilirubin (Negative) Urine Urobilinogen (Less than 2) mg/dL Ur Leukocyte Esterase (Negative) Urine RBC (0-3) /hpf Urine WBC (0-5) /hpf Micro UA Comment Ur Microscopic Review Urine Culture Comments [place] (0.5-1.5) meq/L 08/05/18 08/05/18 08/05/18 Range/Units 08:21 08:21 13:19 WBC (4.0-11.0) th/mm3 RBC (4.50-5.90) mil/mm3 Hgb (13.0-17.0) gm/dL Hct (39.0-51.0) % MCV (80.0-100.0) fL MCH (27.0-34.0) pg MCHC (32.0-36.0) % RDW (11.6-17.2) % Plt Count (150-450) th/mm3 MPV (7.0-11.0) fL Neut % (Auto) (16.0-70.0) % Lymph % (Auto) (9.0-44.0) % [place] % (Auto) (0.0-8.0) % Eos % (Auto) (0.0-4.0) % Baso % (Auto) (0.0-2.0) % Neut # (Auto) (1.8-7.7) th/mm3 Lymph # (Auto) (1.0-4.8) th/mm3 [place] # (Auto) (0.0-0.9) th/mm3 Eos # (Auto) (0.0-0.4) th/mm3 Baso # (Auto) (0.0-0.2) th/mm3 WBC Differential Differential Comment Puncture Site Patient Temperature VBG pH (7.360-7.400) VBG pCO2 (44-48) mmHG VBG pO2 (35-40) mmHG VBG HCO3 (22-26) mmol/L VBG O2 Saturation (70-76) % VBG O2 Content (9.0-17.0) Vol % VBG Base Excess (-2-2) mmol/L VBG Carboxyhemoglobin (0-4) % VBG Methemoglobin (0-2) % Hemoglobin (12.0-16.0) G/DL Inspired O2 % Critical Value Sodium 138 (136-145) meq/L Potassium 3.4 L (3.5-5.1) meq/L Chloride 98 (98-107) meq/L Carbon Dioxide 25.3 (21.0-32.0) meq/L Anion Gap 15 (5-15) meq/L BUN 17 (7-18) mg/dL Creatinine 1.03 (0.60-1.30) mg/dL Estimated GFR 80 L (>89) mL/min POC Glucose 280 H (68-110) mg/dl Random Glucose 264 H D (74-106) mg/dL Hemoglobin A1c (4.3-6.0) % Calcium 8.0 L D (8.5-10.1) mg/dL Magnesium (1.5-2.5) mg/dL Total Bilirubin 0.6 (0.2-1.0) mg/dL AST 13 L (15-37) U/L ALT 17 (12-78) U/L Alkaline Phosphatase 91 (45-117) U/L Troponin I (0.02-0.05) ng/mL Total Protein 6.9 D (6.4-8.2) g/dL Albumin 3.5 D (3.4-5.0) g/dL Lipase 1202 H (73-393) U/L Beta-Hydroxybutyric Acd (0.00-0.39) mmol/L Urine Color (Yellw/Straw) Urine Clarity (Clear) Urine pH (5.0-8.5) Ur Specific [place] (1.002-1.035) Urine Protein (Neg-Trace) mg/dL Urine Glucose (UA) (Negative) mg/dL Urine Ketones (Negative) mg/dL Urine Occult Blood (Negative) Urine Nitrate (Negative) Urine Bilirubin (Negative) Urine Urobilinogen (Less than 2) mg/dL Ur Leukocyte Esterase (Negative) Urine RBC (0-3) /hpf Urine WBC (0-5) /hpf Micro UA Comment Ur Microscopic Review Urine Culture Comments [place] Less than 0.1 L (0.5-1.5) meq/L 08/05/18 Range/Units 16:22 WBC (4.0-11.0) th/mm3 RBC (4.50-5.90) mil/mm3 Hgb (13.0-17.0) gm/dL Hct (39.0-51.0) % MCV (80.0-100.0) fL MCH (27.0-34.0) pg MCHC (32.0-36.0) % RDW (11.6-17.2) % Plt Count (150-450) th/mm3 MPV (7.0-11.0) fL Neut % (Auto) (16.0-70.0) % Lymph % (Auto) (9.0-44.0) % [place] % (Auto) (0.0-8.0) % Eos % (Auto) (0.0-4.0) % Baso % (Auto) (0.0-2.0) % Neut # (Auto) (1.8-7.7) th/mm3 Lymph # (Auto) (1.0-4.8) th/mm3 [place] # (Auto) (0.0-0.9) th/mm3 Eos # (Auto) (0.0-0.4) th/mm3 Baso # (Auto) (0.0-0.2) th/mm3 WBC Differential Differential Comment Puncture Site Patient Temperature VBG pH (7.360-7.400) VBG pCO2 (44-48) mmHG VBG pO2 (35-40) mmHG VBG HCO3 (22-26) mmol/L VBG O2 Saturation (70-76) % VBG O2 Content (9.0-17.0) Vol % VBG Base Excess (-2-2) mmol/L VBG Carboxyhemoglobin (0-4) % VBG Methemoglobin (0-2) % Hemoglobin (12.0-16.0) G/DL Inspired O2 % Critical Value Sodium (136-145) meq/L Potassium (3.5-5.1) meq/L Chloride (98-107) meq/L Carbon Dioxide (21.0-32.0) meq/L Anion Gap (5-15) meq/L BUN (7-18) mg/dL Creatinine (0.60-1.30) mg/dL Estimated GFR (>89) mL/min POC Glucose 247 H (68-110) mg/dl Random Glucose (74-106) mg/dL Hemoglobin A1c (4.3-6.0) % Calcium (8.5-10.1) mg/dL Magnesium (1.5-2.5) mg/dL Total Bilirubin (0.2-1.0) mg/dL AST (15-37) U/L ALT (12-78) U/L Alkaline Phosphatase (45-117) U/L Troponin I (0.02-0.05) ng/mL Total Protein (6.4-8.2) g/dL Albumin (3.4-5.0) g/dL Lipase (73-393) U/L Beta-Hydroxybutyric Acd (0.00-0.39) mmol/L Urine Color (Yellw/Straw) Urine Clarity (Clear) Urine pH (5.0-8.5) Ur Specific [place] (1.002-1.035) Urine Protein (Neg-Trace) mg/dL Urine Glucose (UA) (Negative) mg/dL Urine Ketones (Negative) mg/dL Urine Occult Blood (Negative) Urine Nitrate (Negative) Urine Bilirubin (Negative) Urine Urobilinogen (Less than 2) mg/dL Ur Leukocyte Esterase (Negative) Urine RBC (0-3) /hpf Urine WBC (0-5) /hpf Micro UA Comment Ur Microscopic Review Urine Culture Comments [place] (0.5-1.5) meq/L Imaging Data Radiologist's impression: Chest X-Ray 08/04/18 22:57 CONCLUSION: No acute cardiopulmonary abnormality is identified. Abdomen/Pelvis CT 08/05/18 00:25 CONCLUSION: 1. No acute abnormality is identified to explain the clinical symptoms. 2. There is thickening of the visualized distal esophagus. Suggest correlation with the clinical history for any findings which could indicate an esophagitis. 3. There is a unilateral left L5 pars defect. ECG Data Attestation: I personally reviewed and interpreted this ECG as follows: Interpretation: She had a EKG done on arrival that shows a cardia heart rate of 106, QRS duration 97 ms, QTC 395 ms. Nonspecific T wave abnormalities are noted. T waves are inverted in V1 to Discharge Plan Discharge Disposition Patient Disposition: 30 Still Patient Discharge Details Diagnosis: Intractable nausea and vomiting, Pancreatitis, Poorly controlled diabetes mellitus, Dehydration Physicians Team ED Provider: Linda Adkins Attending Provider: Lilibeth Whalen Other Providers: [facility],Insurance Discharge Interventions Interventions: ED Discharge Assessment Last Done: 08/05/18 02:30 Status ED Status: Left Department Discharge Information Discharge Date/Time: 08/05/18 02:30
[2018-08-04 23:12] LABS: Baso # (Auto) 0.2 th/mm3 (0.0-0.2); Baso % (Auto) 0.9 % (0.0-2.0); Hematocrit 52.4 % (39.0-51.0); Hemoglobin 17.5 gm/dL (13.0-17.0); Lymph # (Auto) 1.6 th/mm3 (1.0-4.8); Lymph % (Auto) 7.8 % (9.0-44.0); Mean Corpuscular HGB Conc 33.4 % (32.0-36.0); Mean Corpuscular Hemoglobin 29.6 pg (27.0-34.0); Mean Corpuscular Volume 88.7 fL (80.0-100.0); Mean Platelet Volume 7.9 fL (7.0-11.0); Mono # (Auto) 1.4 th/mm3 (0.0-0.9); Neut # (Auto) 16.9 th/mm3 (1.8-7.7); Neut % (Auto) 84.3 % (16.0-70.0); Platelet Count 388 th/mm3 (150-450); Red Cell Distribution Width 14.2 % (11.6-17.2); White Blood Count 20.1 th/mm3 (4.0-11.0)
[2018-08-04 23:25] LABS: VBG Base Excess 7.8 mmol/L (-2-2); VBG Blood Gas Oxygen Content 14.5 Vol % (9.0-17.0); VBG PCO2 31 mmHG (44-48); VBG PH 7.59 (7.360-7.400); VBG PO2 30 mmHG (35-40)
[2018-08-04 23:25] LABS: Bilirubin,Urine Negative (Negative); Clarity,Urine Clear (Clear); Color,Urine Straw (Yellw/Straw); Glucose,Urine (UA) 500 or Greater mg/dL (Negative); Leukocyte Esterase,Urine Negative (Negative); Nitrite,Urine Negative (Negative); Specific Gravity,Urine 1.036 (1.002-1.035)
--- NOTE | 2018-08-04 23:28 | XR ---
EXAM DATE: 08/04/2018 10:57 PM EDT AGE/SEX: 42 years / Male INDICATIONS: Nausea, vomiting, shortness of breath, chest pain. CLINICAL DATA: This is the patient's initial encounter. Patient reports that signs and symptoms have been present for 3 days and indicates a pain score of 9/10. MEDICAL/SURGICAL HISTORY: Diabetes mellitus type II. None. COMPARISON: [facility] – [place], CHEST SINGLE AP, 11/11/2017. . FINDINGS: Portable AP view of the chest demonstrates a normal-sized cardiac silhouette. No effusion, consolidat ion, or pneumothorax is identified. The bones and soft tissues demonstrate no acute finding. EKG line s overlie the patient. CONCLUSION: No acute cardiopulmonary abnormality is identified. Electronically signed by: Son Villa MD 08/04/2018 11:27 PM EDT
[2018-08-04] MEDS ORDERED: Morphine Inj 4 MG/ML Vial IV.PUSH ONE (23:37)
[2018-08-04 23:38] LABS: Alanine Aminotransferase 21 U/L (12-78); Albumin 4.5 g/dL (3.4-5.0); Alkaline Phosphatase 117 U/L (45-117); Anion Gap 14 meq/L (5-15); Aspartate Aminotransferase 12 U/L (15-37); Beta Hydroxybutyric Acid 2.47 mmol/L (0.00-0.39); Blood Urea Nitrogen 17 mg/dL (7-18); Calcium 9.3 mg/dL (8.5-10.1); Carbon Dioxide 27.2 meq/L (21.0-32.0); Chloride 91 meq/L (98-107); Glomerular Filtration Rate 59 mL/min (>89); Glucose,Random 434 mg/dL (74-106); Lipase 1040 U/L (73-393); Magnesium 2.2 mg/dL (1.5-2.5); Potassium 3.2 meq/L (3.5-5.1); Sodium 132 meq/L (136-145); Total Protein 8.4 g/dL (6.4-8.2)
--- NOTE | 2018-08-05 01:08 | CT ---
EXAM DATE: 08/05/2018 12:31 AM EDT AGE/SEX: 42 years / Male INDICATIONS: Abdominal pain and nausea X 3 days. CLINICAL DATA: This is the patient's initial encounter. Patient reports that signs and symptoms have been present for 3 days and indicates a pain score of 7/10. MEDICAL/SURGICAL HISTORY: None. None. ORAL CONTRAST: No oral contrast ingested. RADIATION DOSE: 6.78 CTDI (mGy) COMPARISON: [facility] [place], CT ABDOMEN & PELVIS W/O CONTRAST, 04/12/2018. . TECHNIQUE: Multiple contiguous axial images were obtained through the abdomen and pelvis following b olus infusion of 96 ml Omnipaque 350 (iohexol) nonionic water-soluble contrast as a single exam dos e. No oral contrast ingested. Using automated exposure control and adjustment of the mA and/or kV ac cording to patient size, radiation dose was kept as low as reasonably achievable to obtain optimal di agnostic quality images. DICOM format image data is available electronically for review and comparis on. FINDINGS: Lower chest: No acute abnormality is identified. Hepatobiliary: No focal liver lesion is identified. Hepatic vasculature demonstrates no abnormality. No calcified gallstones are present. Kidneys: No hydronephrosis, stone, or mass. Adrenal Glands: Within normal limits. Spleen: Within normal limits. Pancreas: Within normal limits. Vascular: The aorta is nonaneurysmal. There is mild atherosclerotic disease. Bowel/Mesentery: The stomach and small bowel demonstrate no abnormality. No acute colon abnormality i s seen. There is no free intraperitoneal air or fluid. Appendix and terminal ileum are normal. Visual ized distal esophagus demonstrates mild circumferential wall thickening. Abdominal Wall: No hernia is visualized. Retroperitoneum: No lymphadenopathy. Bladder: No wall thickening or mass. Reproductive: Within normal limits. Inguinal: No lymphadenopathy or hernia. Musculoskeletal: No acute osseous abnormality is identified. There is a unilateral left L5 pars defec t. CONCLUSION: 1. No acute abnormality is identified to explain the clinical symptoms. 2. There is thickening of the visualized distal esophagus. Suggest correlation with the clinical his tory for any findings which could indicate an esophagitis. 3. There is a unilateral left L5 pars defect. Electronically signed by: Son Villa MD 08/05/2018 1:06 AM EDT
[2018-08-05] MEDS ORDERED: Bisacodyl 10 MG Supp RECTAL PRN (01:10)
[2018-08-05] MEDS ORDERED: Acetaminophen 325 MG Tablet PO PRN (01:10)
[2018-08-05] MEDS: Sod Chloride 0.9% Inj 1,000 ML IV.CONT SCH ×3 (01:19→22:27)
--- NOTE | 2018-08-05 02:46 | P.HPIM ---
History of Present Illness Primary Care Physician: Nancie Kiran History of Present Illness: This is a 42-year-old male with a PMH of Anxiety, Depression, Bipolar Disorder, DM and h/o Pancreatitis who presented to the ER w/ c/o nausea/vomiting x3 days. Reports decreased PO intake due to symptoms. No fever, chills, cough or diarrhea. States too weak to give himself Insulin, doesn't know last time he took his meds. On arrival, BP 165/105, HR 106, O2 sat 98% on RA, Afebrile. WBC 20.1. Hemoglobin 17.5. K+ 3.2. Creatinine 1.33. BS 439. Troponin negative. Lipase 1040. UA negative for UTI. CXR with no acute findings. CT Abdomen/Pelvis no acute findings, possible esophagitis. S/p IVF, Insulin and Zofran in ER w/ some improvement. - Diagnosis (1) Intractable nausea and vomiting (2) Pancreatitis (3) DM (diabetes mellitus) (4) Renal insufficiency Review of Systems PAST FAMILY HISTORY: Reviewed. No h/o DM or CAD All other systems reviewed negative except as stated in [facility]PI [facility] - History History Provided By: Patient - Medical History Medical History: Medical History (Last Updated 08/04/18 @ 22:47 by Ivette Tidwell RN) Bipolar 1 disorder Depression Diabetes GERD (gastroesophageal reflux disease) Neuropathy Pancreatitis - Surgical History Surgical History: Surgical History (Last Updated 08/04/18 @ 22:47 by Ivette Tidwell RN) No history of previous surgery - Tobacco History Second Hand Smoke Exposure: No Smoking Status: Never smoker - Alcohol History How Often Do You Have a Drink Containing Alcohol: Never - Substance Use History Substance History: No History of Abuse - Travel History Recent Travel in the [place] Within the Last 8 Weeks: No Recent Travel Out of the Country Within the Last 8 Weeks: No - Immunization History Tetanus Immunization: >5 Years Medications and Allergies Active Medications: Active Medications Acetaminophen (Tylenol) 650 mg PO Q4H PRN PRN Reason: Temp > 100.4 Al Hydroxide/Mg Hydroxide (Milk Of Magnesia Liq) 30 ml PO Q12H PRN PRN Reason: Mild Constipation Bisacodyl (Dulcolax Supp) 10 mg RECTAL DAILY PRN PRN Reason: SEVERE CONSITIPATION Dextrose (D50w Vial) 50 ml IV.PUSH UNSCH PRN PRN Reason: PER HYPOGLYCEMIA PROTOCOL Sodium Chloride (Ns Inj) 1,000 mls @ 100 mls/hr IV.CONT .Q10H [facility] Last Admin: 08/05/18 01:19 Dose: 100 mls/hr Lactulose (Lactulose Liq) 30 ml PO DAILY PRN PRN Reason: SEVERE CONSITIPATION Ondansetron HCl (Zofran Inj) 4 mg IV.PUSH Q6H PRN PRN Reason: NAUSEA OR VOMITING Pantoprazole Sodium (Protonix Inj) 40 mg IV.PUSH Q12H [facility] Senna/Docusate Sodium (Nguyen-Colace) 1 tab PO BID [facility] Sennosides (Senokot) 17.2 mg PO Q12H PRN PRN Reason: Moderate Constipation Sodium Chloride (Ns Flush) 2 ml IV.FLUSH PRN PRN PRN Reason: FLUSH AFTER USING IV ACCESS Allergies Allergy/AdvReac Type Severity Reaction Status Date / Time penicillin G Allergy Severe HIVES Verified 04/12/18 20:47 Pork/Porcine Containing Allergy Severe ALLERGIC Verified 04/12/18 20:47 Products TO PORK INSULIN ONLY Home Medications Medication Instructions Recorded Confirmed Type benztropine 1 mg PO DAILY 08/04/18 08/04/18 History desmopressin 0.1 mg PO HS 08/04/18 08/04/18 History fluoxetine 60 mg PO DAILY 08/04/18 08/04/18 History gabapentin 300 mg PO TID 08/04/18 08/04/18 History insulin NPH and regular human 60 unit SUBCUT DAILY 08/04/18 08/04/18 History [Novolin 70/30 U-100 Insulin] levetiracetam 500 mg PO BID 08/04/18 08/04/18 History lithium carbonate 300 mg PO BID 08/04/18 08/04/18 History ondansetron HCl [Zofran] 4 mg PO QID PRN 08/04/18 08/04/18 History pantoprazole 40 mg PO DAILY 08/04/18 08/04/18 History quetiapine [Seroquel XR] 400 mg PO DAILY 08/04/18 08/04/18 History Exam Vital signs: Vital Signs 08/04/18 22:18 08/04/18 22:57 08/05/18 00:18 Temperature 98.4 F Pulse Rate 106 H 104 H Respiratory Rate 22 16 Blood Pressure 165/105 H Pulse Oximetry 98 99 08/05/18 01:18 Temperature Pulse Rate 110 H Respiratory Rate 18 Blood Pressure 140/85 Pulse Oximetry 98 Intake & Output 08/04/18 08/04/18 08/05/18 06:59 18:59 06:59 Intake Total 1999 Output Total 600 / 600 Balance 1400 / 1400 Weight 81.647 kg Intake: IV 1999 NS Inj 1,000 ML @ Wide Open IV. 1999 SIG BOLUS ONE Rx#:[id number] Output: Urine 600 / 600 Narrative: PE: GENERAL: Young white male in no acute distress. SKIN: Focused skin assessment warm and dry. HEENT: PERRLA, EOMI. No scleral icterus or conjunctival pallor. No lid lag or facial droop. CARDIOVASCULAR: Regular rate and rhythm. No obvious murmurs to auscultation. No chest tenderness to palpation. RESPIRATORY: No obvious rhonchi or wheezing. Clear to auscultation. Breath sounds equal bilaterally. GASTROINTESTINAL: Abdomen soft, non-tender, nondistended. BS normal. MUSCULOSKELETAL: Extremities without clubbing, cyanosis, or edema. No obvious deformities. NEUROLOGICAL: Awake, alert and oriented x4. No focal neurologic deficits. Moving both upper and lower extremities spontaneously. PSYCHIATRIC: Appropriate mood and affect. Insight and judgment normal. Results - Labs CBC & Chem 7: 08/04/18 22:58 08/04/18 22:58 Labs: Short CBC 08/04/18 Range/Units 22:58 WBC 20.1 H (4.0-11.0) th/mm3 Hgb 17.5 H (13.0-17.0) gm/dL Hct 52.4 H (39.0-51.0) % Plt Count 388 (150-450) th/mm3 BMP 08/04/18 22:58 Sodium 132 L Potassium 3.2 L Chloride 91 L Carbon Dioxide 27.2 BUN 17 Creatinine 1.33 H Calcium 9.3 Cardiac Enzymes 08/04/18 Range/Units 22:58 Troponin I Less than 0.02 L (0.02-0.05) ng/mL Liver Function 08/04/18 Range/Units 22:58 Total Bilirubin 0.8 (0.2-1.0) mg/dL AST 12 L (15-37) U/L ALT 21 (12-78) U/L Alkaline Phosphatase 117 (45-117) U/L Albumin 4.5 (3.4-5.0) g/dL Urine 08/04/18 Range/Units 23:14 Urine Color Straw (Yellw/Straw) Urine Clarity Clear (Clear) Urine pH 6.0 (5.0-8.5) Ur Specific [place] 1.036 H (1.002-1.035) Urine Protein Negative (Neg-Trace) mg/dL Urine Glucose (UA) 500 or greater (Negative) mg/dL - Imaging Impressions Chest X-Ray 08/04/18 22:57 CONCLUSION: No acute cardiopulmonary abnormality is identified. Abdomen/Pelvis CT 08/05/18 00:25 CONCLUSION: 1. No acute abnormality is identified to explain the clinical symptoms. 2. There is thickening of the visualized distal esophagus. Suggest correlation with the clinical history for any findings which could indicate an esophagitis. 3. There is a unilateral left L5 pars defect. Caprini VTE Risk Assessment Caprini VTE Risk Assessment: No/Low Risk (score <= 1) Caprini Risk Assessment Model: Point Value = 1 Point Value = 2 Point Value = 3 Point Value = 5 Age 41-60 Minor surgery BMI > 25 kg/m2 Swollen legs Varicose veins or History of unexplained or recurrent spontaneous Oral contraceptives or hormone replacement Sepsis (< 1 month) Serious lung disease, including pneumonia (< 1 month) Abnormal pulmonary function Acute myocardial infarction Congestive heart failure (< 1 month) History of inflammatory bowel disease Medical patient at bed rest Age 61-74 Arthroscopic surgery Major open surgery (> 45 min) Laparoscopic surgery (> 45 min) Malignancy Confined to bed (> 72 hours) Immobilizing plaster cast Central venous access Age >= 75 History of VTE Family history of VTE Factor V Leiden Prothrombin [id number] Lupus anticoagulant Anticardiolipin antibodies Elevated serum homocysteine Heparin-induced thrombocytopenia Other congenital or acquired thrombophilia Stroke (< 1 month) Elective arthroplasty Hip, pelvis, or leg fracture Acute spinal cord injury (< 1 month) Prophylaxis Regimen: Total Risk Factor Score Risk Level Prophylaxis Regimen 0-1 Low Early ambulation 2 Moderate Order ONE of the following: *Sequential Compression Device (SCD) *Heparin 5000 units SQ BID 3-4 Higher Order ONE of the following medications: *Heparin 5000 units SQ TID *Enoxaparin/Lovenox 40 mg SQ daily (WT < 150 kg, CrCl > 30 mL/min) *Enoxaparin/Lovenox 30 mg SQ daily (WT < 150 kg, CrCl > 10-29 mL/min) *Enoxaparin/Lovenox 30 mg SQ BID (WT < 150 kg, CrCl > 30 mL/min) AND/OR *Sequential Compression Device (SCD) 5 or more Highest Order ONE of the following medications: *Heparin 5000 units SQ TID (Preferred with Epidurals) *Enoxaparin/Lovenox 40 mg SQ daily (WT < 150 kg, CrCl > 30 mL/min) *Enoxaparin/Lovenox 30 mg SQ daily (WT < 150 kg, CrCl > 10-29 mL/min) *Enoxaparin/Lovenox 30 mg SQ BID (WT < 150 kg, CrCl > 30 mL/min) AND *Sequential Compression Device (SCD) Assessment and Plan - Assessment (1) Intractable nausea and vomiting Code(s): R11.2 - Nausea with vomiting, unspecified Status: Acute (2) Pancreatitis Code(s): K85.90 - Acute pancreatitis without necrosis or infection, unspecified Status: Acute (3) DM (diabetes mellitus) Code(s): E11.9 - Type 2 diabetes mellitus without complications Status: Acute (4) Renal insufficiency Code(s): N28.9 - Disorder of kidney and ureter, unspecified Status: Acute - Plan A/P: 1. Intractable Nausea/Vomiting: w/ decreased PO intake, CT Abd/Pelvis w/ no acute findings, possible esophagitis, continue w/ IVF, diet as tolerated, Protonix IV, Zofran/Compazine/Reglan 2. DM: Uncontrolled, not using Insulin due to intractable nausea/vomiting. BS 439, mild acidosis but no DKA, IVF for hydration, Sliding scale w/ Accu-Cheks , check Hgb A1c. 3. Pancreatitis: Lipase 1040, Protonix IV, IVF, NPO, advance diet as tolerated , repeat Lipase in am. 4. AMY: Creatinine 1.33, previously 1.19 on 04/12/18, IVF for hydration, repeat labs in am, monitor I/O. 5. DVT Prophylaxis: SCD/Teds 6. Social work for d/c planning as needed 7. Case discussed w/ ER physician at length, labs/records/imaging reviewed by me
[2018-08-05] MEDS: Pantoprazole Inj 40 MG Vial IV.PUSH SCH ×2 (06:30→17:00)
[2018-08-05 07:48] LABS: Baso # (Auto) 0.2 th/mm3 (0.0-0.2); Baso % (Auto) 0.7 % (0.0-2.0); Eos % (Auto) 0.1 % (0.0-4.0); Hemoglobin 14.9 gm/dL (13.0-17.0); Lymph # (Auto) 2.2 th/mm3 (1.0-4.8); Lymph % (Auto) 9.6 % (9.0-44.0); Mean Corpuscular Hemoglobin 29.5 pg (27.0-34.0); Mean Corpuscular Volume 89.4 fL (80.0-100.0); Mean Platelet Volume 7.6 fL (7.0-11.0); Mono # (Auto) 1.6 th/mm3 (0.0-0.9); Neut # (Auto) 19.4 th/mm3 (1.8-7.7); Neut % (Auto) 82.6 % (16.0-70.0); Platelet Count 302 th/mm3 (150-450); Red Blood Count 5.03 mil/mm3 (4.50-5.90); Red Cell Distribution Width 14.3 % (11.6-17.2); White Blood Count 23.4 th/mm3 (4.0-11.0)
[2018-08-05] MEDS: FLUoxetine 20 MG Capsule PO SCH (08:31)
[2018-08-05] MEDS: Gabapentin 300 MG Capsule PO SCH ×3 (08:31→17:00)
[2018-08-05] MEDS: levETIRAcetam 500 MG Tablet PO SCH ×2 (08:32→21:09)
[2018-08-05] MEDS: Senna/Docusate Sodium 8.6/50 MG Tablet PO SCH ×2 (08:32→21:10)
[2018-08-05] MEDS ORDERED: Dextrose 50% in Water 50 ML Vial IV.PUSH PRN (08:32)
[2018-08-05 09:17] LABS: Alanine Aminotransferase 17 U/L (12-78); Albumin 3.5 g/dL (3.4-5.0); Alkaline Phosphatase 91 U/L (45-117); Anion Gap 15 meq/L (5-15); Aspartate Aminotransferase 13 U/L (15-37); Blood Urea Nitrogen 17 mg/dL (7-18); Carbon Dioxide 25.3 meq/L (21.0-32.0); Chloride 98 meq/L (98-107); Glomerular Filtration Rate 80 mL/min (>89); Glucose,Random 264 mg/dL (74-106); Lipase 1202 U/L (73-393); Potassium 3.4 meq/L (3.5-5.1); Sodium 138 meq/L (136-145); Total Protein 6.9 g/dL (6.4-8.2)
[2018-08-05] MEDS: Insulin NovoLOG Aspart Correctional Sugar Inj SQ SCH ×3 (13:24→21:49)
[2018-08-05 15:33] LABS: Hemoglobin A1c 11.3 % (4.3-6.0)
--- NOTE | 2018-08-05 15:39 | P.PN ---
Subjective Interval history: Follow up for pancreatitis, esophagitis, abdominal pain, nausea/vomiting. The patient reports continued diffuse abdominal pain, however worse across bilateral lower quadrants, without much epigastric tenderness. He reports intermittent nausea but no vomiting since his arrival. No BM overnight. Denies fevers but reports chills. Denies any other medical complaints at this time. Physical Exam Vital signs: Vital Signs 08/04/18 22:18 08/04/18 22:57 08/05/18 00:18 Temperature 98.4 F Pulse Rate 106 H 104 H Respiratory Rate 22 16 Blood Pressure 165/105 H Pulse Oximetry 98 99 08/05/18 01:18 08/05/18 03:19 08/05/18 07:56 Temperature 98.4 F 98.3 F Pulse Rate 110 H 108 H 90 Respiratory Rate 18 20 20 Blood Pressure 140/85 152/86 H 131/82 Pulse Oximetry 98 99 100 08/05/18 12:56 Temperature 97.7 F Pulse Rate 89 Respiratory Rate 18 Blood Pressure 128/76 Pulse Oximetry 98 Intake & Output 08/04/18 08/05/18 08/05/18 18:59 06:59 18:59 Intake Total 1999 / 1999 1000 / 1000 Output Total 750 / 750 Balance 1250 / 1250 1000 / 1000 Weight 8.183 kg Intake: IV 1999 1000 / 1000 NS Inj 1,000 ML @ 100 mls/hr IV 1000 / 1000 .CONT .Q10H [facility] Rx#:[id number] NS Inj 1,000 ML @ Wide Open IV. 1999 SIG BOLUS ONE Rx#:[id number] Output: Urine 750 / 750 Other: # Voids 2 Weight On Admission 81.647 kg Narrative: GENERAL: Middle aged white male in no acute distress. SKIN: Focused skin assessment warm and dry. HEENT: PERRL. No scleral icterus or conjunctival pallor. No lid lag or facial droop. CARDIOVASCULAR: Regular rate and rhythm. No obvious murmurs to auscultation. No chest tenderness to palpation. RESPIRATORY: No obvious rhonchi or wheezing. Clear to auscultation. Breath sounds equal bilaterally. GASTROINTESTINAL: Abdomen soft, non-tender, nondistended. BS normal. MUSCULOSKELETAL: Extremities without clubbing, cyanosis, or edema. No obvious deformities. NEUROLOGICAL: Awake, alert and oriented x4. No focal neurologic deficits. Moving both upper and lower extremities spontaneously. PSYCHIATRIC: Appropriate mood and affect. Insight and judgment normal. Results - Labs CBC & Chem 7: 08/05/18 07:26 08/05/18 08:21 Laboratory Results - last 24 hr 08/04/18 08/04/18 08/04/18 22:21 22:52 22:58 WBC 20.1 H RBC 5.90 Hgb 17.5 H Hct 52.4 H MCV 88.7 MCH 29.6 MCHC 33.4 RDW 14.2 Plt Count 388 MPV 7.9 Neut % (Auto) 84.3 H Lymph % (Auto) 7.8 L [place] % (Auto) 7.0 Eos % (Auto) 0.0 Baso % (Auto) 0.9 Neut # (Auto) 16.9 H Lymph # (Auto) 1.6 [place] # (Auto) 1.4 H Eos # (Auto) 0.0 Baso # (Auto) 0.2 WBC Differential . Differential Comment Auto diff final Puncture Site Iv Patient Temperature 98.6 VBG pH 7.59 H* VBG pCO2 31 L VBG pO2 30 L VBG HCO3 30 H VBG O2 Saturation 60 L VBG O2 Content 14.5 VBG Base Excess 7.8 H VBG Carboxyhemoglobin 1.1 VBG Methemoglobin 0.7 Hemoglobin 17.3 H Inspired O2 21 Critical Value Yes Sodium Potassium Chloride Carbon Dioxide Anion Gap BUN Creatinine Estimated GFR POC Glucose 439 H Random Glucose Calcium Magnesium Total Bilirubin AST ALT Alkaline Phosphatase Troponin I Total Protein Albumin Lipase Beta-Hydroxybutyric Acd Urine Color Urine Clarity Urine pH Ur Specific [place] Urine Protein Urine Glucose (UA) Urine Ketones Urine Occult Blood Urine Nitrate Urine Bilirubin Urine Urobilinogen Ur Leukocyte Esterase Urine RBC Urine WBC Micro UA Comment Ur Microscopic Review Urine Culture Comments [place] 08/04/18 08/04/18 08/04/18 22:58 23:14 23:54 WBC RBC Hgb Hct MCV MCH MCHC RDW Plt Count MPV Neut % (Auto) Lymph % (Auto) [place] % (Auto) Eos % (Auto) Baso % (Auto) Neut # (Auto) Lymph # (Auto) [place] # (Auto) Eos # (Auto) Baso # (Auto) WBC Differential Differential Comment Puncture Site Patient Temperature VBG pH VBG pCO2 VBG pO2 VBG HCO3 VBG O2 Saturation VBG O2 Content VBG Base Excess VBG Carboxyhemoglobin VBG Methemoglobin Hemoglobin Inspired O2 Critical Value Sodium 132 L Potassium 3.2 L Chloride 91 L Carbon Dioxide 27.2 Anion Gap 14 BUN 17 Creatinine 1.33 H Estimated GFR 59 L POC Glucose 345 H Random Glucose 434 H Calcium 9.3 Magnesium 2.2 Total Bilirubin 0.8 AST 12 L ALT 21 Alkaline Phosphatase 117 Troponin I Less than 0.02 L Total Protein 8.4 H Albumin 4.5 Lipase 1040 H Beta-Hydroxybutyric Acd 2.47 H Urine Color Straw Urine Clarity Clear Urine pH 6.0 Ur Specific [place] 1.036 H Urine Protein Negative Urine Glucose (UA) 500 or greater Urine Ketones 80 or greater H Urine Occult Blood Negative Urine Nitrate Negative Urine Bilirubin Negative Urine Urobilinogen Less than 2 Ur Leukocyte Esterase Negative Urine RBC Less than 1 Urine WBC Less than 1 Micro UA Comment Culture not ind Ur Microscopic Review Not Reportable Urine Culture Comments Culture not ind [place] 08/05/18 08/05/18 08/05/18 01:28 07:26 08:21 WBC 23.4 H RBC 5.03 Hgb 14.9 D Hct 45.0 MCV 89.4 MCH 29.5 MCHC 33.0 RDW 14.3 Plt Count 302 MPV 7.6 Neut % (Auto) 82.6 H Lymph % (Auto) 9.6 [place] % (Auto) 7.0 Eos % (Auto) 0.1 Baso % (Auto) 0.7 Neut # (Auto) 19.4 H Lymph # (Auto) 2.2 [place] # (Auto) 1.6 H Eos # (Auto) 0.0 Baso # (Auto) 0.2 WBC Differential . Differential Comment Auto diff final Puncture Site Patient Temperature VBG pH VBG pCO2 VBG pO2 VBG HCO3 VBG O2 Saturation VBG O2 Content VBG Base Excess VBG Carboxyhemoglobin VBG Methemoglobin Hemoglobin Inspired O2 Critical Value Sodium 138 Potassium 3.4 L Chloride 98 Carbon Dioxide 25.3 Anion Gap 15 BUN 17 Creatinine 1.03 Estimated GFR 80 L POC Glucose 309 H Random Glucose 264 H D Calcium 8.0 L D Magnesium Total Bilirubin 0.6 AST 13 L ALT 17 Alkaline Phosphatase 91 Troponin I Total Protein 6.9 D Albumin 3.5 D Lipase 1202 H Beta-Hydroxybutyric Acd Urine Color Urine Clarity Urine pH Ur Specific [place] Urine Protein Urine Glucose (UA) Urine Ketones Urine Occult Blood Urine Nitrate Urine Bilirubin Urine Urobilinogen Ur Leukocyte Esterase Urine RBC Urine WBC Micro UA Comment Ur Microscopic Review Urine Culture Comments [place] 08/05/18 08/05/18 08:21 13:19 WBC RBC Hgb Hct MCV MCH MCHC RDW Plt Count MPV Neut % (Auto) Lymph % (Auto) [place] % (Auto) Eos % (Auto) Baso % (Auto) Neut # (Auto) Lymph # (Auto) [place] # (Auto) Eos # (Auto) Baso # (Auto) WBC Differential Differential Comment Puncture Site Patient Temperature VBG pH VBG pCO2 VBG pO2 VBG HCO3 VBG O2 Saturation VBG O2 Content VBG Base Excess VBG Carboxyhemoglobin VBG Methemoglobin Hemoglobin Inspired O2 Critical Value Sodium Potassium Chloride Carbon Dioxide Anion Gap BUN Creatinine Estimated GFR POC Glucose 280 H Random Glucose Calcium Magnesium Total Bilirubin AST ALT Alkaline Phosphatase Troponin I Total Protein Albumin Lipase Beta-Hydroxybutyric Acd Urine Color Urine Clarity Urine pH Ur Specific [place] Urine Protein Urine Glucose (UA) Urine Ketones Urine Occult Blood Urine Nitrate Urine Bilirubin Urine Urobilinogen Ur Leukocyte Esterase Urine RBC Urine WBC Micro UA Comment Ur Microscopic Review Urine Culture Comments [place] Less than 0.1 L - Imaging Impressions Chest X-Ray 08/04/18 22:57 CONCLUSION: No acute cardiopulmonary abnormality is identified. Abdomen/Pelvis CT 08/05/18 00:25 CONCLUSION: 1. No acute abnormality is identified to explain the clinical symptoms. 2. There is thickening of the visualized distal esophagus. Suggest correlation with the clinical history for any findings which could indicate an esophagitis. 3. There is a unilateral left L5 pars defect. Assessment and Plan - Assessment (1) Intractable nausea and vomiting Code(s): R11.2 - Nausea with vomiting, unspecified Status: Acute (2) Pancreatitis Code(s): K85.90 - Acute pancreatitis without necrosis or infection, unspecified Status: Acute (3) DM (diabetes mellitus) Code(s): E11.9 - Type 2 diabetes mellitus without complications Status: Acute (4) Renal insufficiency Code(s): N28.9 - Disorder of kidney and ureter, unspecified Status: Acute - Plan 42-year-old male with a PMH of Anxiety, Depression, Bipolar Disorder, DM and h/ o Pancreatitis who presented to the ER w/ c/o nausea/vomiting x3 days. Intractable Nausea/Vomiting/Abdominal pain: w/ decreased PO intake. Suspect secondary to pancreatitis/esophagitis. -CT abd/pelvis reviewed, shows thickening of distal esophagus, likely esophagitis -See treatment below -Continue IVF, antiemetics, pain control prn Acute Pancreatitis: acute, lipase 1040. -Liquid diet for now -Continue IVF, antiemetics prn -Monitor lipase Esophagitis: seen on CT as above -continue on IV protonix 40mg bid -diet as tolerated -consider GI consult for EGD if pain persists DM: Uncontrolled, not using Insulin due to intractable nausea/vomiting. -BS 439, mild acidosis but no DKA -Continue IVF for hydration -Sliding scale w/ Accu-Cheks -check Hgb A1c. AMY: Creatinine 1.33, previously 1.19 on 04/12/18 -Continue IVF for hydration -avoid nephrotoxins -monitor I/O -repeat labs in am DVT Prophylaxis: SCD/Teds Discharge Planning: Discharge pending further clinical improvement and when tolerating oral intake. (1) Intractable nausea and vomiting Qualifiers: Vomiting type: unspecified Qualified Code(s): R11.2 - Nausea with vomiting, unspecified (2) Pancreatitis Qualifiers: Chronicity: acute Pancreatitis type: unspecified pancreatitis type Acute pancreatitis complication: no infection or necrosis Qualified Code(s): K85.90 - Acute pancreatitis without necrosis or infection, unspecified
--- NOTE | 2018-08-05 17:04 | ECG ---
Date Performed: 08/04/2018 Time Performed: 22:24:21 PTAGE: 42 years EKG: SINUS TACHYCARDIA NONSPECIFIC T-WAVE ABNORMALITY ABNORMAL RHYTHM ECG Since PREVIOUS TRACING , pt is now tachycardic PREVIOUS TRACIN09/03/2015 04.06 DOCTOR: Anita Du Interpretating Date/Time 08/05/2018 17:03:47
[2018-08-06] MEDS: Sod Chloride 0.9% Inj 1,000 ML IV.CONT SCH (06:16)
[2018-08-06] MEDS: Pantoprazole Inj 40 MG Vial IV.PUSH SCH (06:17)
[2018-08-06 06:42] LABS: Chloride 108 meq/L (98-107); Potassium 3.1 meq/L (3.5-5.1); Sodium 143 meq/L (136-145)
[2018-08-06 06:43] LABS: Baso # (Auto) 0.2 th/mm3 (0.0-0.2); Baso % (Auto) 1.6 % (0.0-2.0); Eos # (Auto) 0.2 th/mm3 (0.0-0.4); Eos % (Auto) 1.6 % (0.0-4.0); Hematocrit 42.6 % (39.0-51.0); Hemoglobin 14.2 gm/dL (13.0-17.0); Lymph # (Auto) 3.6 th/mm3 (1.0-4.8); Lymph % (Auto) 31.7 % (9.0-44.0); Mean Corpuscular HGB Conc 33.4 % (32.0-36.0); Mean Corpuscular Hemoglobin 29.7 pg (27.0-34.0); Mean Corpuscular Volume 88.9 fL (80.0-100.0); Mean Platelet Volume 8.3 fL (7.0-11.0); Mono # (Auto) 0.7 th/mm3 (0.0-0.9); Mono % (Auto) 5.7 % (0.0-8.0); Neut # (Auto) 6.7 th/mm3 (1.8-7.7); Neut % (Auto) 59.4 % (16.0-70.0); Platelet Count 281 th/mm3 (150-450); Red Blood Count 4.79 mil/mm3 (4.50-5.90); Red Cell Distribution Width 13.7 % (11.6-17.2); White Blood Count 11.4 th/mm3 (4.0-11.0)
[2018-08-06 06:48] LABS: Calcium 7.6 mg/dL (8.5-10.1)
[2018-08-06 06:49] LABS: Albumin 2.9 g/dL (3.4-5.0); Anion Gap 9 meq/L (5-15); Blood Urea Nitrogen 14 mg/dL (7-18); Carbon Dioxide 26.5 meq/L (21.0-32.0); Glucose,Random 163 mg/dL (74-106); Lipase 270 U/L (73-393); Magnesium 2.4 mg/dL (1.5-2.5)
[2018-08-06 06:51] LABS: Alanine Aminotransferase 14 U/L (12-78); Aspartate Aminotransferase 14 U/L (15-37)
[2018-08-06 06:52] LABS: Glomerular Filtration Rate Greater Than 89 mL/min (>89)
[2018-08-06 06:53] LABS: Total Protein 5.6 g/dL (6.4-8.2)
[2018-08-06 06:54] LABS: Alkaline Phosphatase 71 U/L (45-117)
[2018-08-06 08:24] VITALS: BP 136/87; PULSE 67; RESP 16; TEMP 98.1; O2SAT 98
[2018-08-06] MEDS: Senna/Docusate Sodium 8.6/50 MG Tablet PO SCH (08:46)
[2018-08-06] MEDS: FLUoxetine 20 MG Capsule PO SCH (08:46)
[2018-08-06] MEDS: Gabapentin 300 MG Capsule PO SCH (08:46)
[2018-08-06] MEDS: levETIRAcetam 500 MG Tablet PO SCH (08:47)
[2018-08-06] MEDS: Insulin NovoLOG Aspart Correctional Sugar Inj SQ SCH (08:47)
--- NOTE | 2018-08-06 08:52 | P.PN ---
Subjective Interval history: 42-year-old male who was seen and examined today for follow-up on nausea vomiting. Patient has tolerated to liquid diets at this time. He has not had any recurrent nausea and vomiting. Laboratory studies appear to be stable. Vital signs are stable. Patient remains afebrile. Patient states that he is tolerating food, however he has not regained an appetite. Physical Exam Vital signs: Vital Signs 08/05/18 12:56 08/05/18 16:22 08/05/18 20:00 Temperature 97.7 F 98.4 F 98.4 F Pulse Rate 89 90 95 H Respiratory Rate 18 20 18 Blood Pressure 128/76 142/94 H 117/73 Pulse Oximetry 98 98 97 08/06/18 00:35 08/06/18 08:00 Temperature 98.2 F 98.1 F Pulse Rate 86 67 Respiratory Rate 18 16 Blood Pressure 133/68 136/87 Pulse Oximetry 94 L 98 Intake & Output 08/05/18 08/06/18 08/06/18 18:59 06:59 18:59 Intake Total 1200 / 1200 2265 / 2265 Output Total 820 / 820 Balance 1200 / 1200 1445 / 1445 Weight 79.8 kg Intake: IV 1000 / 1000 1900 / 1900 NS Inj 1,000 ML @ 100 mls/hr IV 1000 / 1000 1900 / 1900 .CONT .Q10H ADRIÁN Rx#:[id number] Oral 200 / 200 365 / 365 Output: Urine 820 / 820 Other: # Voids 2 Narrative: GENERAL: Well-developed, well-nourished, in no acute distress. alert and orientated HEENT: Head is normocephalic without any lesions or masses noted. Facial features are symmetric. Eyes: Extraocular muscles are intact. Conjunctivae were clear. NECK: Supple without any masses. Trachea midline no deviation. No JVD, CARDIAC: Regular rhythm, regular rate. S1/S2 are heard. No murmurs gallops or rubs. LUNGS: Clear to auscultation bilaterally. No wheeze, rhonchi or rales. No use of accessory muscles on inspiration or expiration. ABDOMEN: Soft, nontender. Nondistended. Bowel sounds heard in all 4 quadrants. No organomegaly or masses. Negative rebound, negative guarding EXTREMITIES: No edema, pulses are equal bilaterally. No cyanosis or clubbing NEUROLOGY: Mood and affect appear appropriate. Cranial nerves II through XII grossly intact. Moving all extremities, speech is clear Results - Labs CBC & Chem 7: 08/06/18 05:23 08/06/18 05:23 Laboratory Results - last 24 hr 08/05/18 08/05/18 08/05/18 07:26 08:21 08:21 CBC w Diff WBC RBC Hgb Hct MCV MCH MCHC RDW Plt Count MPV Neut % (Auto) Lymph % (Auto) [place] % (Auto) Eos % (Auto) Baso % (Auto) Neut # (Auto) Lymph # (Auto) Ogle # (Auto) Eos # (Auto) Baso # (Auto) WBC Differential Differential Comment Sodium 138 Potassium 3.4 L Chloride 98 Carbon Dioxide 25.3 Anion Gap 15 BUN 17 Creatinine 1.03 Estimated GFR 80 L POC Glucose Random Glucose 264 H D Hemoglobin A1c 11.3 H Calcium 8.0 L D Magnesium Total Bilirubin 0.6 AST 13 L ALT 17 Alkaline Phosphatase 91 Total Protein 6.9 D Albumin 3.5 D Lipase 1202 H [place] Less than 0.1 L 08/05/18 08/05/18 08/05/18 13:19 16:22 21:13 CBC w Diff WBC RBC Hgb Hct MCV MCH MCHC RDW Plt Count MPV Neut % (Auto) Lymph % (Auto) Ogle % (Auto) Eos % (Auto) Baso % (Auto) Neut # (Auto) Lymph # (Auto) [place]gle # (Auto) Eos # (Auto) Baso # (Auto) WBC Differential Differential Comment Sodium Potassium Chloride Carbon Dioxide Anion Gap BUN Creatinine Estimated GFR POC Glucose 280 H 247 H 324 H Random Glucose Hemoglobin A1c Calcium Magnesium Total Bilirubin AST ALT Alkaline Phosphatase Total Protein Albumin Lipase [place] 08/06/18 08/06/18 08/06/18 05:23 05:23 08:11 CBC w Diff Auto diff final WBC 11.4 H D RBC 4.79 Hgb 14.2 Hct 42.6 MCV 88.9 MCH 29.7 MCHC 33.4 RDW 13.7 Plt Count 281 MPV 8.3 Neut % (Auto) 59.4 Lymph % (Auto) 31.7 Ogle % (Auto) 5.7 Eos % (Auto) 1.6 Baso % (Auto) 1.6 Neut # (Auto) 6.7 Lymph # (Auto) 3.6 Ogle # (Auto) 0.7 Eos # (Auto) 0.2 Baso # (Auto) 0.2 WBC Differential . Differential Comment . Sodium 143 Potassium 3.1 L Chloride 108 H D Carbon Dioxide 26.5 Anion Gap 9 BUN 14 Creatinine 0.78 Estimated GFR Greater than 89 POC Glucose 203 H Random Glucose 163 H D Hemoglobin A1c Calcium 7.6 L Magnesium 2.4 Total Bilirubin 0.6 AST 14 L ALT 14 Alkaline Phosphatase 71 Total Protein 5.6 L D Albumin 2.9 L D Lipase 270 [place] - Procedures none Assessment and Plan - Assessment (1) Intractable nausea and vomiting Code(s): R11.2 - Nausea with vomiting, unspecified Status: Acute (2) Pancreatitis Code(s): K85.90 - Acute pancreatitis without necrosis or infection, unspecified Status: Acute (3) DM (diabetes mellitus) Code(s): E11.9 - Type 2 diabetes mellitus without complications Status: Acute (4) Renal insufficiency Code(s): N28.9 - Disorder of kidney and ureter, unspecified Status: Acute - Plan Intractable Nausea/Vomiting/Abdominal pain: Resolved -CT abd/pelvis reviewed, shows thickening of distal esophagus, likely esophagitis -Continue IVF, antiemetics, pain control prn -Advance diet as tolerated Acute Pancreatitis: acute, resolved -Advance diet as tolerated -Continue IVF, antiemetics prn -Lipase level has returned to normal Esophagitis: seen on CT as above -IV protonix 40mg bid, changed to p.o. -Start Carafate Diabetes: Uncontrolled, -not using Insulin due to intractable nausea/vomiting. -Accu-Cheks with sliding scale insulin -Hemoglobin A1c 11.3 Acute kidney injury: -Secondary to nausea and vomiting -Continue IV hydration -Avoid nephrotoxins Hypokalemia -Continue monitor and replete as needed DVT Prophylaxis: -Sequential compression devices Discharge Planning: Discharge home in stable condition, patient continues to tolerate diet Activity: Ad frantz. Diet: Diabetic diet Medication per medication reconciliation Follow-up with primary medical doctor in 1 week (1) Intractable nausea and vomiting Qualifiers: Vomiting type: unspecified Qualified Code(s): R11.2 - Nausea with vomiting, unspecified (2) Pancreatitis Qualifiers: Chronicity: acute Pancreatitis type: unspecified pancreatitis type Acute pancreatitis complication: no infection or necrosis Qualified Code(s): K85.90 - Acute pancreatitis without necrosis or infection, unspecified
[2018-08-06] MEDS ORDERED: Benztropine 2 MG Tablet PO SCH (10:00)
== END 2018-08-06 12:35 | disposition home or self-care (01) ==
LOC: NEDA 22:13 → NEPE 22:13 → NEPHCDU 08-05 02:25 → PH3 08-05 23:57
PROVIDERS: ADMIT Internal Medicine; ATTEND Internal Medicine